=== PATIENT | male | born 1955 | race African-American/Black ===

== ENCOUNTER 2018-09-15 11:53 | Inpatient (IN) | payer OTHER ==
--- NOTE | 2018-09-15 13:14 | RAD ---
CHEST ONE VIEW: HISTORY: Dyspnea. Shortness of breath. FINDINGS: There is a very extensive left-sided pleural effusion/pleural fluid collection. There are some compr essive changes of the left mid and lower lobes. No evidence of acute process in the right lung. The heart size is difficult to assess because of the large pleural fluid collection. IMPRESSION: Very large left-sided pleural fluid collection with minimal shift of the midline to the right and com pressive changes of the underlying left lung. No old studies. POS: [facility]
[2018-09-15 13:17] LABS: Hemoglobin 9.5 g/dL (14.0-18.0); Mean Corpuscular Volume 90.3 fL (78.0-98.0); Mean Platelet Volume 9.1 fL (7.4-10.4); Platelet Count 211 thou/uL (130-400); RBC Distribution Width 16.1 % (11.5-14.5); Red Blood Cell (RBC) Count 3.51 mill/uL (4.70-6.10)
[2018-09-15] MEDS ORDERED: ISOVUE-370 76%-LOCM 1 ML ONE (13:33)
[2018-09-15 13:34] LABS: ALT (SGPT) 11 U/L (8-55); AST (SGOT) 52 U/L (5-34); Albumin 2.2 g/dL (3.4-4.8); Alkaline Phosphatase 60 U/L (40-150); Anion Gap 19 mmol/L (10-20); BUN (Urea Nitrogen) 33 mg/dL (8.4-25.7); Bilirubin, Total 1.4 mg/dL (0.2-1.2); Calc. Creatinine Clearance 0 mL/min (70-130); Carbon Dioxide 20 mmol/L (23-31); Chloride 97 mmol/L (98-107); Estimated GFR-MDRD Greater than 90; Globulin 6.1 g/dL (2.4-3.5); Glucose 105 mg/dL (80-115); Potassium 3.8 mmol/L (3.5-5.1); Protein, Total 8.3 g/dL (5.8-8.1); Sodium 132 mmol/L (136-145)
[2018-09-15 13:44] LABS: Band 45 % (5-11); Hypochromia SLIGHT = 6-15 cells (100X) (0-5/hpf); Lymphocytes 6 % (21-51); MDiff Complete? YES; Monocytes 1 % (0-10); Neutrophil 48 % (42-75); Platelet Morphology Comment Appears Adequate; Polychromasia MODERATE = 3-4 cells (100X) (0-2/hpf); Reflex for Review?? YES; Target Cells SLIGHT = 2-5 cells (100X) (0-1/hpf); Vacuoles SLIGHT; White Blood Cell (WBC) Count 5.7 thou/uL (4.8-10.8)
--- NOTE | 2018-09-15 15:19 | CT ---
CT ANGIO CHEST PERFORMED WITH IV CONTRAST ENHANCEMENT WITH 3D RECONSTRUCTIONS: Date: 09/15/18 HISTORY: Shortness of breath. Productive thick yellow cough. FINDINGS: There is a massive left-sided pleural effusion which has some loculated component, essentially comple tely collapses the left upper lobe. The left upper lobe is partially expanded. There are worrisome fe atures of some pleural based mass-like area seen along the upper portion of this effusion which is fe lt to represent a pleural based ill-defined mass. On the right side, there is interstitial nodular pa ttern which is very suspicious for lymphangitic spread of tumor. There is a spiculated mass-like area in the right upper lobe that measures about 3.5 cm in length. There are some other nodular parenchym al densities also seen, one within the right upper lobe measuring 12.0 mm, and some smaller areas of ill-defined nodularity. There are pathologic appearing mediastinal lymph nodes. Enlarged nodes at the great vessel region blair sure up to 12.0 mm in size. Similar size pretracheal nodes are seen. There is also some right hilar l ymphadenopathy. There are subcarinal nodes. Some of these nodes are somewhat densely calcified, but t he majority of these are noncalcified. Calcified nodes could be an indication of old granulomatous di sease, and another possibility is that it indicates some type of mucinous producing tumor. The liver parenchyma shows no focal abnormalities on this angiographic phase examination. There is so ft tissue mass in the region of the left adrenal gland. I believe that at least part of this is relat ed to the adrenal gland, but could represent adjacent lymph nodes. There are also some enlarged nodes in the gastrohepatic region and what appear to be some nodes in the periportal region. There are als o abnormally enlarged pericardial nodes measuring up to 11.0 mm. Small pericardial effusion is seen. There is no CT evidence for pulmonary embolus. IMPRESSION: 1. Massive left effusion which is partially loculated. Complete collapse of the left lower lobe. Par tial atelectatic changes of the left upper lobe and what is probably some type of pleural based mass in the left upper lobe. There is also a spiculated mass area within the right upper lobe and other il l-defined areas of nodularity. Some of these changes may represent pneumonitis type change, but I wou ld suspect neoplasm. There are also features that are very suspicious for lymphangitic spread of tumo r within the right lung. 2. Pathologic appearing adenopathy within the mediastinum, pericardium, and also abnormal nodes in t he gastrohepatic and periportal region, and left adrenal mass versus some conglomeration of nodes in this region. 3. No CT evidence for pulmonary embolus. These findings were telephoned to Dr. Palacio. CODE CR. POS: [facility]
[2018-09-15] MEDS ORDERED: Acetaminophen 325 MG TAB PO PRN (16:36)
[2018-09-15] MEDS ORDERED: Ondansetron ODT 4 MG TAB PO PRN (16:36)
--- NOTE | 2018-09-15 16:58 | PDOC.FPRHP ---
- History of Present Illness Chief Complaint: hard to breath History of Present Illness: 63M presents from senior care for shortness of breath of approximately one month. It has worsen since starting and is constant. Associated with productive yellow sputum, cough, night sweat. He has not tried anything to improve it. It is worst with exertion but not with laying flat. He never had this issue before. He specifically denies fever, chills, chest pain, orthopnea, dysuria, LE swelling. ED Course: In ED, he had CXR concerning for effusion of his left lung. D-dimer was elevated. He had a CTA which ruled out PE, but found left pleural effusion and nodules/masses concerning for malignancy. - Allergies/Adverse Reactions Allergies Allergy/AdvReac Type Severity Reaction Status Date / Time No Known Allergies Allergy Unverified 09/15/18 16:55 - Home Medications Medication Instructions Recorded Confirmed Type Aspirin [Aspirin EC] DAILY 09/15/18 History Ibuprofen 400 mg PO 09/15/18 History Lisinopril 09/15/18 History Pravastatin Sodium [Pravachol] 10 mg 09/15/18 History - History PMHx: HTN, HLD, Hx of hep c (unknown of cured) PSHx: Denies FHx: HTN in mother Social: At least 20+ tobacco pack year history. "1 bottle of alcohol a month" starting from age 18. Denies drug use. - Review of Systems General: reports: night sweats, fatigue. denies: fever/chills Eyes: denies: vision changes ENT: denies: nasal congestion, rhinorrhea Respiratory: reports: cough, shortness of breath, exercise intolerance. denies : congestion Cardiovascular: denies: chest pain, palpitation, paroxysmal nocturnal dyspnea, orthopnea Gastrointestinal: denies: nausea, vomiting, diarrhea, constipation, abdominal pain Genitourinary: denies: incontinence, dysuria Skin: denies: rashes, itching Musculoskeletal: denies: pain, tenderness Neurological: denies: syncope, weakness Psychological: denies: anxiety, depression - Vital signs BP: [] HR: [] RR: [] Tmax: [] Pox: []% on [] Wt: [] - Physical Exam Constitutional: NAD, awake, alert and oriented -Constitutional: Thin HEENT: normocephalic and atraumatic, PERRLA, EOMI, conjunctiva clear, grossly normal vision, grossly normal hearing, normal nasal mucosa, MMM, oropharynx clear -HEENT: Missing some teeth Neck: supple, trachea midline Chest: no-tender to palpation, no lesions Heart: RRR, normal S1/S2, pulses present, no edema Lungs: CTAB, no respiratory distress, no rales/rhonchi (Dimish left sided lung sound), no wheezing, no retractions Abdomen: soft, non-tender, bowel sounds present, no masses/distention Musculoskeletal: normal structure, normal tone, ROM grossly normal Neurological: no focal deficit, normal sensation Skin: no rash/lesions, good turgor Heme/Lymphatic: no unusual bruising or bleeding, no petechia -Psychiatric: At times, somewhat somenolent and had to be questioned multiple time. FMR H&P: Results - Labs Result Diagrams: 09/15/18 12:40 09/15/18 12:40 Lab results: WBC 5.7 thou/uL (4.8-10.8) 09/15/18 12:40 Hgb 9.5 g/dL (14.0-18.0) L 09/15/18 12:40 Hct 31.7 % (42.0-52.0) L 09/15/18 12:40 MCV 90.3 fL (78.0-98.0) 09/15/18 12:40 Plt Count 211 thou/uL (130-400) 09/15/18 12:40 Band Neuts % (Manual) 45 % (5-11) H 09/15/18 12:40 Sodium 132 mmol/L (136-145) L 09/15/18 12:40 Potassium 3.8 mmol/L (3.5-5.1) 09/15/18 12:40 Chloride 97 mmol/L (98-107) L 09/15/18 12:40 Carbon Dioxide 20 mmol/L (23-31) L 09/15/18 12:40 BUN 33 mg/dL (8.4-25.7) H 09/15/18 12:40 Creatinine 1.00 mg/dL (0.7-1.3) 09/15/18 12:40 Glucose 105 mg/dL (80-115) 09/15/18 12:40 Calcium 8.0 mg/dL (7.8-10.44) 09/15/18 12:40 Total Bilirubin 1.4 mg/dL (0.2-1.2) H 09/15/18 12:40 AST 52 U/L (5-34) H 09/15/18 12:40 ALT 11 U/L (8-55) 09/15/18 12:40 Alkaline Phosphatase 60 U/L (40-150) 09/15/18 12:40 B-Natriuretic Peptide 70.5 pg/mL (0-100) 09/15/18 12:40 Serum Total Protein 8.3 g/dL (5.8-8.1) H 09/15/18 12:40 Albumin 2.2 g/dL (3.4-4.8) L 09/15/18 12:40 Additional comment: 110/86 Resp 18 O2 96 RA 123 Pulse Temp 98.4F FMR H&P: A/P - Problem List (1) Acute respiratory failure with hypoxia and hypercapnia Current Visit: Yes Status: Acute Priority: High Code(s): J96.01 - ACUTE RESPIRATORY FAILURE WITH HYPOXIA; J96.02 - ACUTE RESPIRATORY FAILURE WITH HYPERCAPNIA Assessment and Plan: Patient comes in with shortness of breath, CMP suggesting hypercapnia and after initial evaluation, being placed on nasal canula. Plan for patient is to start with abx. Suspect post-obstructive pneumonia. Will start with vanc and levaquin to cover for MRSA and legionella Further study with legionella/strep antigen. Ordered blood culture to be taken prior to abx. Consult pulmonology as CT concerning for malignancy in lung and effusion (2) HLD (hyperlipidemia) Current Visit: Yes Status: Acute Code(s): E78.5 - HYPERLIPIDEMIA, UNSPECIFIED Assessment and Plan: Chronic issue Continue on home med (3) HTN (hypertension) Current Visit: Yes Status: Acute Code(s): I10 - ESSENTIAL (PRIMARY) HYPERTENSION Assessment and Plan: Chronic issue, stable Will hold on medication at this time to ensure patient BP is stable (4) History of hepatitis C Current Visit: Yes Status: Acute Code(s): Z86.19 - PERSONAL HISTORY OF OTHER INFECTIOUS AND PARASITIC DISEASES Assessment and Plan: Will request record to verify. - Plan Tele, inpatient. FMR H&P: Upper Level - Plan Date/Time: 09/15/18 [id number] I, [], have evaluated this patient and agree with findings/plan as outlined by market research intern resident. Pertinent changes/additions are listed here. Addendum - Attending - Attending Attestation Date/Time: 09/15/181918 I personally evaluated the patient and discussed the management with Dr. Bolden I agree with the History, Examination, Assessment and Plan documented above with any addition or exceptions noted below.63 yo inmate with progressive SOB last month he denies any cough fever or chills . Hx smoking since young age.Patient found with Large left sided pleural effusion suggestive of malignancy. Patient with hyponatremia most likely related to pulmonary pathology currently in NAD with supplemental oxygen. Appreciate Pulmonary recommendation start neb and cover with empirical antibiotic for post obstructive pneumonia. Hold DVT prophylaxis until determination further surgical intervention.
[2018-09-15] MEDS ORDERED: Vancomycin HCl 1 GM in Sodium Chloride 0.9% 250 ML 250 ML IVPB SCH (17:00)
[2018-09-15] MEDS ORDERED: Vancomycin HCl 1 GM in Premix Bag 1 BAG IVPB SCH (17:00)
[2018-09-15 17:02] LABS: Actual Bicarbonate (HCO3a) 23.9 mEq/L (22-28); Analyzer IN Cardio ER; Base Excess (BEa) 1.8 mEq/L (-2.0 to +3.0); CO2 Tension 28.5 mmHg (35.0-45.0); Calcium, Ionized 1.07 mmol/L (1.12-1.30); Carboxyhemoglobin (COHb) 0.2 gm% (0.0-3.0); Hemoglobin (Hb) 9.3 g/dL (14.0-18.0); Potassium - ABG Lab 3.55 mmol/L (3.70-5.30); pH, Arterial 7.54 (7.35-7.45)
[2018-09-15 17:06] LABS: O2 Tension (PaO2) 59.3 mmHg (> 80.0); Puncture Site LRA
[2018-09-15 17:07] LABS: ALV-art Gradient 104.715 (0-20)
--- NOTE | 2018-09-15 18:55 | CON ---
DATE OF CONSULTATION: HISTORY OF PRESENT ILLNESS: Mr. Babb is a 63-year-old prisoner, who presented with shortness of breath for over a month. He has also lost approximately 60 pounds over an unknown period of time. He is cachectic appearing. He has no fever or chills that he complains of. He has no previous history of tuberculosis. He has not had any productive cough. He has had a chest x-ray and CT scan of the chest performed, which shows a large loculated left pleural effusion. He also has lymph nodes present in the level V and level VII areas. He has a right upper lobe lung mass that is spiculated approximately 3 cm in diameter. PAST MEDICAL HISTORY: 1. Hypertension. 2. Dyslipidemia. 3. History of hepatitis C. PAST SURGICAL HISTORY: None. CURRENT MEDICATIONS: 1. Aspirin 325 mg daily. 2. Lisinopril 10 mg daily. 3. Pravastatin 10 mg daily. ALLERGIES: NONE. SOCIAL HISTORY: He continuously smokes. He is incarcerated REVIEW OF SYSTEMS: Ten-point review of systems is performed and is negative except as above. PHYSICAL EXAMINATION: GENERAL: This is a cachectic-appearing gentleman, resting comfortably on the Stroke Unit. VITAL SIGNS: Temperature is 98.8, pulse is 70 and regular, and blood pressure is 170/72. HEENT: Sclerae are nonicteric. Pupils are equal and round bilaterally. NECK: Supple. He has an easily palpable rock-hard left supraclavicular lymph node. CHEST: Has diminished breath sounds over the left chest. He has nonproductive cough. HEART: Rhythm is regular. There are no murmurs. ABDOMEN: Soft and nontender. EXTREMITIES: There is no edema. ASSESSMENT AND PLAN: This is concerning for malignant process. I have discussed the thoracoscopy to drain his pleural effusion and biopsy the pleura and any other abnormalities we see in his chest. We would also biopsy his left supraclavicular lymph node. He is in agreement with my plans for tomorrow. Job ID: [id number] [facility]
[2018-09-15] MEDS: Vancomycin HCl 1 GM in Premix Bag 1 BAG IVPB SCH (22:08)
--- NOTE | 2018-09-15 22:45 | PDOC.EVN ---
Event Note - Event Note Event Note: Notified by nurses that patient is fevering to 101.5, HR 123, RR 22-24, O2 93 on 3L, blood pressure was low at 97/49 but is now stable at 119/68. Will initiate sepsis work up with 30 mg/kg bolus, procal, and trend lactic acid. Blood cultures have already been drawn.
[2018-09-15] MEDS ORDERED: Sodium Chloride 0.9% 1,000 ML IV SCH (23:00)
--- NOTE | 2018-09-16 00:48 | CON ---
DATE OF CONSULTATION: 09/15/2018 HISTORY OF PRESENT ILLNESS: Mr. Babb is a 63-year-old [facility] inmate who is reporting a 60-pound weight loss and progressive shortness of breath for at least a month. His weight loss has come on longer than that. I was consulted for pleural effusion. I reviewed his CT and examined him. He had a chest x-ray and CT angiogram done in the year and I have reviewed both. PAST MEDICAL HISTORY: 1. He says he has had heart problems in the past, but he is not specific. Says he has never had a catheterization or heart attack. 2. He has a history of hepatitis. 3. He has a history of hypertension. FAMILY HISTORY: Positive for hypertension. PAST SURGICAL HISTORY: Negative. SOCIAL HISTORY: He has been a smoker and was a regular drinker before he was incarcerated. REVIEW OF SYSTEMS: Ten-point review of systems completed, is remarkable for shortness of breath and weight loss, otherwise negative. PHYSICAL EXAMINATION: GENERAL: He denies fever, chills, or sweats. VITAL SIGNS: Temp is 101.8, heart rate is 137, respiratory rate is 20, blood pressure 136/80 when he was admitted to the floor. HEENT: Pupils are equal. Sclerae are anicteric. I do not palpate any cervical lymphadenopathy. NECK: His trachea is in midline. There was a left supraclavicular node that was noted by Dr. Brewer. LUNGS: Remarkable for absent breath sounds, 2/[address] up on the left. HEART: Regular rhythm. S1 and S2 are normal. ABDOMEN: Soft and nontender. No masses readily palpable. EXTREMITIES: Without clubbing, cyanosis or edema. LABORATORY DATA: White count 5.7, hemoglobin 9.5, MCV is 90, RDW is 16, platelets 211. He has 45% bands on his peripheral smear. Sodium 132, potassium 3.8, chloride 97, bicarb 20, BUN 33, creatinine 1.0, bilirubin is 1.4. AST is 52, ALT is 11, protein is 8.3, globulin 6.1. Chest CT, suggestive of a loculated effusion that has been fairly massive on the left with multiple nodes. There is a lateral chest wall lung density that is oblong and spiculated. He has an increase in interstitial marking. It could be consistent with lymphangitic spread of tumor. He also has a right upper lobe mass. He has mediastinal and abdominal nodes. 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 Thoracoscopy may reveal a diagnosis and if not a supraclavicular node biopsy may be helpful. His elevated serum protein and his elevated globulin could be paraneoplastic, it also could be associated with another malignant process such as multiple myeloma, this seems unlikely. I doubt he has Waldenstrom's. He does have a white count with a left shift, so antibiotics are reasonable for now, but I doubt this is an infectious process. I consulted CT surgery and they had been gracious enough to see the patient and he is on a schedule for thoracoscopy, chest tube placement, pleural biopsies and possible supraclavicular node biopsy tomorrow. This is a 70 minute consult, with greater than 50% of time spent on unit coordinating care. Job ID: [id number] [facility]
[2018-09-16 00:59] LABS: Legionella Urinary Ag Negative (Negative)
[2018-09-16 01:19] LABS: Strep pneumo Urine Ag NEGATIVE (NEGATIVE)
[2018-09-16 03:14] LABS: Troponin I Less than 0.010 ng/mL (< 0.028)
[2018-09-16 03:16] LABS: Lactic Acid 2.4 mmol/L (0.5-2.2)
[2018-09-16 03:17] LABS: Band 20 % (5-11); Hemoglobin 7.5 g/dL (14.0-18.0); Hypochromia SLIGHT = 6-15 cells (100X) (0-5/hpf); Lymphocytes 4 % (21-51); MDiff Complete? YES; Mean Corpuscular HGB CONC 30.1 g/dL (32.0-36.0); Mean Corpuscular Hemoglobin 27.1 pg (27.0-31.0); Mean Corpuscular Volume 89.9 fL (78.0-98.0); Mean Platelet Volume 9.7 fL (7.4-10.4); Monocytes 2 % (0-10); Neutrophil 74 % (42-75); Platelet Count 121 thou/uL (130-400); Platelet Morphology Comment Appears Decreased; Polychromasia SLIGHT = 2-3 cells (100X) (0-2/hpf); RBC Distribution Width 15.9 % (11.5-14.5); Red Blood Cell (RBC) Count 2.78 mill/uL (4.70-6.10); Target Cells SLIGHT = 2-5 cells (100X) (0-1/hpf); White Blood Cell (WBC) Count 4.3 thou/uL (4.8-10.8)
[2018-09-16 03:23] LABS: AST (SGOT) 59 U/L (5-34); Albumin 1.7 g/dL (3.4-4.8); Alkaline Phosphatase 48 U/L (40-150); Anion Gap 16 mmol/L (10-20); BUN (Urea Nitrogen) 27 mg/dL (8.4-25.7); Bilirubin, Total 1.3 mg/dL (0.2-1.2); Calc. Creatinine Clearance 85 mL/min (70-130); Calcium 7.3 mg/dL (7.8-10.44); Carbon Dioxide 20 mmol/L (23-31); Chloride 101 mmol/L (98-107); Estimated GFR-MDRD Greater than 90; Globulin 5.2 g/dL (2.4-3.5); Glucose 85 mg/dL (80-115); Potassium 3.7 mmol/L (3.5-5.1); Protein, Total 6.9 g/dL (5.8-8.1); Sodium 133 mmol/L (136-145)
[2018-09-16] MEDS: Sodium Chloride 0.9% 1,000 ML IV SCH ×5 (03:41→20:40)
[2018-09-16 03:46] LABS: ALT (SGPT) 12 U/L (8-55)
[2018-09-16] MEDS ORDERED: Sodium Chloride 0.9% 1,000 ML IV SCH ×2 (05:45→15:00)
[2018-09-16] MEDS ORDERED: Bupivacaine HCl 0.5%/Epinephrine 1:200,000/PF 30 ml Vial ONE (06:28)
[2018-09-16] MEDS ORDERED: Fentanyl 250 MCG/5 ML VIAL ONE (07:00)
--- NOTE | 2018-09-16 08:32 | PDOC.FM ---
- Subjective Subjective: Pt getting ready to go down for surgery when we saw him. Pt had no acute concerns or complaints. Pt feeling better from earlier in the night. Pt had fevers and elevated heart rate overnight. Sepsis protocol initiated. - Objective MAR Reviewed: Yes Vital Signs & Weight: Vital Signs (12 hours) Temp Pulse Resp BP Pulse Ox 09/16/18 05:00 102.5 F H 133 H 26 H 153/82 H 94 L 09/16/18 02:50 100.9 F H 141 H 28 H 130/66 93 L 09/16/18 02:10 131 H 18 95 09/16/18 00:00 101.0 F H 123 H 22 H 115/71 95 09/15/18 21:00 119/68 Weight Weight 72 kg Result Diagrams: 09/16/18 17:38 09/16/18 02:48 EKG Reviewed by me: Yes Radiology Reviewed by me: Yes Radiology: Chest CT: Massive Left effusion and collapse of the left lower lobe. Pathologic appearing adenopathy w/n the mediastinum, pericardium, and also abnormal nodes in the gastrohepatic and periportal region, and left adreanl mass vs some conglomeration of nodes in the region. No PE. Phys Exam - Physical Examination Constitutional: NAD HEENT: PERRLA, moist MMs Neck: no nodes, supple, full ROM Decreased breath sounds on left side. Rales and crackles noted Cardiovascular: RRR, no significant murmur Gastrointestinal: soft, no distention Musculoskeletal: pulses present Neurological: non-focal, moves all 4 limbs Psychiatric: normal affect Skin: no rash, normal turgor Dx/Plan (1) Acute respiratory failure with hypoxia and hypercapnia Code(s): J96.01 - ACUTE RESPIRATORY FAILURE WITH HYPOXIA; J96.02 - ACUTE RESPIRATORY FAILURE WITH HYPERCAPNIA Status: Acute (2) Pleural effusion Code(s): J90 - PLEURAL EFFUSION, NOT ELSEWHERE CLASSIFIED Status: Acute (3) Neoplasm /cancer Code(s): C80.1 - MALIGNANT (PRIMARY) NEOPLASM, UNSPECIFIED Status: Acute (4) Pneumonia Code(s): J18.9 - PNEUMONIA, UNSPECIFIED ORGANISM Status: Acute (5) HLD (hyperlipidemia) Code(s): E78.5 - HYPERLIPIDEMIA, UNSPECIFIED Status: Acute (6) HTN (hypertension) Code(s): I10 - ESSENTIAL (PRIMARY) HYPERTENSION Status: Acute (7) History of hepatitis C Code(s): Z86.19 - PERSONAL HISTORY OF OTHER INFECTIOUS AND PARASITIC DISEASES Status: Acute - Plan Plan: Acute respiratory failure with hypoxia and hypercapnia 2/2 to mass and likely obstructive pneumonia Patient comes in with shortness of breath, CMP suggesting hypercapnia and after initial evaluation, being placed on nasal canula. Suspect post-obstructive pneumonia. Pt started spiking fever with elevated HR overnight. Concern for sepsis. Will continue with vanc and levaquin to cover for MRSA and legionella. Acetominophen for fevers. Will continue fluids once out of surgery. -CT Chest as read above. -Strep and Legionella Ag negative. -Blood cx pending. -Pulmonology- Dr. Luke consulted- follow recs -CT surgery- Dr. Brewer consulted- follow recs Plan for surgery and bx today. Will follow post op recs. Will await biopsy results. Anemia -Type and crossed -Hgb 7.5. -Will continue to monitor and transfuse as needed. HLD -Chronic issue -Continue on home med HTN -Chronic issue, stable -Will hold on medication at this time to ensure patient BP is stable History of hepatitis C -Will request record to verify. Addendum - Attending - Attending Attestation Date/Time: 09/16/182012 I personally evaluated the patient and discussed the management with Dr. Myers I agree with the History, Examination, Assessment and Plan documented above with any addition or exceptions noted below. Patient for thoracotomy and supraclavicular node biopsy today.
[2018-09-16] MEDS ORDERED: Enoxaparin Sodium 40 MG/0.4 ML SYRINGE SC SCH (09:00)
[2018-09-16 12:18] LABS: Actual Bicarbonate (HCO3a) 21.5 mEq/L (22-28); Base Excess (BEa) -6.2 mEq/L (-2.0 to +3.0); CO2 Tension 54.4 mmHg (35.0-45.0); Calcium, Ionized 0.98 mmol/L (1.12-1.30); Carboxyhemoglobin (COHb) 2.1 gm% (0.0-3.0); Hemoglobin (Hb) 8.6 g/dL (14.0-18.0); O2 Tension (PaO2) 72.1 mmHg (> 80.0)
[2018-09-16 12:21] LABS: pH, Arterial 7.21 (7.35-7.45)
[2018-09-16 12:22] LABS: Puncture Site LINE
--- NOTE | 2018-09-16 12:30 | OP ---
DATE OF PROCEDURE: 09/16/2018 PREOPERATIVE DIAGNOSES: 1. Left supraclavicular mass. 2. Left chronic pleural effusion with right lung mass. POSTOPERATIVE DIAGNOSES: 1. Left supraclavicular mass. 2. Left empyema. PROCEDURES PERFORMED: 1. Excision of left supraclavicular mass. 2. Left subclavian central line. 3. Left thoracoscopy/thoracotomy with total pulmonary decortication. ANESTHESIA: General endotracheal - Dr. Herman Steele. DRAINS: 32-Turkish chest tubes x2. SPECIMENS: 1. Left supraclavicular mass. 2. Pleural fluid and decortication specimen sent for culture and cytology. ESTIMATED BLOOD LOSS: Less than 100. FINDINGS: 1. A 3 cm hard supraclavicular mass. 2. 2500 mL of turbid foul-smelling fluid with a totally encased left upper and lower lobe. The parietal and visceral pleura were decorticated as much as I felt safe doing. There will still be some space, but with the drainage, hopefully, this will close. DESCRIPTION OF PROCEDURE: After consent was obtained, the patient was brought to the operating room and placed in supine position on the operating table. Appropriate central line was placed and general endotracheal anesthesia was induced. The left chest wall was prepped and draped in usual sterile fashion. A 7-Turkish triple-lumen central line was placed using modified Seldinger technique. This was secured with silk suture. The skin incision was made over the supraclavicular mass. Dissection down through the platysma was taken with cautery. External jugular vein was preserved. Phrenic nerve was noted and protected. The mass was carefully dissected free from the surrounding tissues including the subclavian vein. Once the mass was able to be removed from the incision, it was removed. Hemostasis was ensured. The wound was copiously irrigated. Wound was then closed in layers and Dermabond applied to skin. The patient was then placed in right lateral decubitus position. Joints were appropriately padded. SCDs were used. The left chest wall was prepped and draped in usual sterile fashion. Two port incisions were made and the suction inserted. About 2500 total mL of turbid foul-smelling fluid was evacuated. On insertion of the scope, there was a large amount of very thick parietal peel. I could not get this to pass through the port incision. Therefore, a working incision was made, which later was extended to a thoracotomy due to the volume of material that was removed. Both parietal and visceral pleura were decorticated. The peel was thick and very adherent to the lung. It was difficult to define actually where the lung ended, the pericardium and diaphragm began. Eventually we were able to get in the subpulmonary space and decorticate the diaphragm and the lung itself. 32-Turkish chest tubes were placed. The chest was copiously irrigated with 5 L of warm water. The lung was inflated and mostly filled the chest cavity. Ribs were reapproximated with #1 Vicryl. Wounds were irrigated and closed in layers and Dermabond was applied to the skin. The patient tolerated the procedure well, was awakened, extubated, and transferred to the intensive care unit in stable, but critical condition. Job ID: [id number]
[2018-09-16] MEDS ORDERED: Norepinephrine 8 MG/0.9% NS 250 ML ONE (12:43)
[2018-09-16] MEDS ORDERED: HYDROcodone/Acetaminophen 5/325 mg Tablet PO PRN ×2 (13:18)
[2018-09-16] MEDS ORDERED: Phenylephrine 10 MG/NS 250 ML 250 ML IVPB PRN (13:18)
[2018-09-16] MEDS ORDERED: Promethazine HCl 25 MG/ML VIAL IM PRN (13:18)
[2018-09-16] MEDS ORDERED: hydrALAZINE 20 MG/ML VIAL SLOW IVP PRN (13:18)
[2018-09-16] MEDS ORDERED: Morphine 4 MG/ML VIAL SLOW IVP PRN (13:18)
[2018-09-16] MEDS ORDERED: Morphine 2 MG/ML SYRINGE SLOW IVP PRN ×2 (13:18→23:30)
--- NOTE | 2018-09-16 13:18 | EKG ---
Test Reason : Blood Pressure : / mmHG Vent. Rate : 138 BPM Atrial Rate : 138 BPM P-R Int : 132 ms QRS Dur : 072 ms QT Int : 362 ms P-R-T Axes : 049 016 088 degrees QTc Int : 548 ms Poor data quality, interpretation may be adversely affected Sinus tachycardia with Fusion complexes T wave abnormality, consider inferior ischemia T wave abnormality, consider anterolateral ischemia Abnormal ECG When compared with ECG of 15-SEP-2018 12:12, (Unconfirmed) Fusion complexes are now Present Confirmed by CATALINO GRUBER, SRobert ([id number]) on 09/16/2018 1:17:45 PM Referred By: HARLEY Confirmed By:DR. Amairani BAE MD
[2018-09-16] MEDS: Vancomycin HCl 1 GM in Premix Bag 1 BAG IVPB SCH ×2 (13:25→20:39)
[2018-09-16] MEDS: Lisinopril 20 MG TAB PO SCH (13:26)
[2018-09-16 13:45] LABS: Actual Bicarbonate (HCO3a) 17.8 mEq/L (22-28); Base Excess (BEa) -6.6 mEq/L (-2.0 to +3.0); CO2 Tension 30.6 mmHg (35.0-45.0); Calcium, Ionized 0.95 mmol/L (1.12-1.30); Carboxyhemoglobin (COHb) 2.7 gm% (0.0-3.0); Hemoglobin (Hb) 7.5 g/dL (14.0-18.0); O2 Tension (PaO2) 74.4 mmHg (> 80.0); Potassium - ABG Lab 3.65 mmol/L (3.70-5.30); pH, Arterial 7.38 (7.35-7.45)
[2018-09-16 13:47] LABS: Puncture Site LINE
--- NOTE | 2018-09-16 15:20 | RAD ---
CHEST ONE VIEW: History: Status post thoracotomy. Comparison: 09-15-18 FINDINGS: Endotracheal tube is in satisfactory position. Left subclavian line has been placed. Catheter tip ove rlies the superior vena cava. Two left sided chest tubes are now in place. The left effusion has sign ificantly reduced in size. The left lung is incompletely re-expanded. Surgical clips are seen in the left supraclavicular region. The mass like areas within the right lung in the upper lobe region is un changed. IMPRESSION: 1. Post-operative changes with two left chest tubes now in place with significant reduction of the le ft pleural effusion. The left lung is incompletely re-expanded. Pleural based mass-like area in the l eft upper lobe and a mass in the right upper lobe are also again demonstrated. Interstitial lung nolasco ges which are suggestive of lymphangitic spread of tumor are also unchanged. 2. Endotracheal tube in satisfactory position. 3. Left subclavian line catheter tip overlying the proximal superior vena cava. POS: [facility]
[2018-09-16] MEDS ORDERED: Norepinephrine 8 MG/250 ML IVPB SCH (16:30)
[2018-09-16] MEDS ORDERED: Lidocaine 1% PF 5 ML VIAL ONE (17:10)
[2018-09-16] MEDS ORDERED: Glycopyrrolate 0.2 MG/ML 5 ML SYRINGE ONE (17:10)
[2018-09-16] MEDS ORDERED: Rocuronium Bromide 10 MG/ML (10ML VIAL) ONE (17:10)
[2018-09-16] MEDS ORDERED: Ondansetron PF 4 MG/2 ML Vial ONE (17:10)
[2018-09-16] MEDS ORDERED: PROPOFOL 200 MG/20 ML VIAL ONE (17:10)
[2018-09-16 18:14] LABS: Anisocytosis SLIGHT = 6-15 cells (100X) (0-5/hpf); Band 41 % (5-11); Hemoglobin 9.3 g/dL (14.0-18.0); Hypochromia SLIGHT = 6-15 cells (100X) (0-5/hpf); Lymphocytes 8 % (21-51); MDiff Complete? YES; Mean Corpuscular HGB CONC 30.5 g/dL (32.0-36.0); Mean Corpuscular Volume 91.8 fL (78.0-98.0); Metamyelocyte 2 % (0-0); Monocytes 3 % (0-10); Neutrophil 46 % (42-75); Platelet Count 140 thou/uL (130-400); Platelet Morphology Comment Appears Adequate; Red Blood Cell (RBC) Count 3.31 mill/uL (4.70-6.10); Toxic Granulation SLIGHT
[2018-09-16] MEDS: Pravastatin Sodium 20 MG TAB PO SCH (20:39)
--- NOTE | 2018-09-16 22:35 | PRG ---
DATE OF SERVICE: 09/16/2018 SUBJECTIVE: Mr. Babb went to the OR today. Surprisingly, he had pus in his left chest. Approximately 2-1/2 L per my discussion with Dr. Brewer was removed. Surprisingly, the Gram-stain does not show any organisms, it did show abundant white cells. The large hard supraclavicular node was removed. He became hypotensive in the OR and after the OR, he has received 2 L of saline bolus after arrived in the ICU. He was on a Levophed drip ordered by me on arrival and this was slowly being tapered when I last checked on him this afternoon. OBJECTIVE: LUNGS: Clear anteriorly. HEART: Regular rhythm. ABDOMEN: Soft. He is sedated for ventilation. LABORATORY DATA: White count is 5, hemoglobin 9.3, platelets 140. Sodium 133, potassium 3.7, chloride 101, bicarb 20, BUN 27, creatinine 0.88. Albumin was 1.7. IMPRESSION: 1. Metastatic lung malignancy most likely. 2. ? empyema. We will await cultures. I doubt this is a purulent exudate related to necrotic tumor, but I guess it is a possibility. I doubt he has a chylothorax, well I guess it is still in the differential. I will continue to follow the other physicians. He is currently not weaning. Postprocedure blood gas showed metabolic acidosis. His ventilator was adjusted to compensate for this and his followup blood gas showed pH went from 7.21 to 7.38. Critical care time 35 minutes. Job ID: [id number]
[2018-09-16] MEDS ORDERED: Propofol 1,000 MG/100 ML VIAL IV PRN (23:30)
[2018-09-16] MEDS ORDERED: Lorazepam 2 MG/ML VIAL SLOW IVP PRN (23:30)
[2018-09-16] MEDS ORDERED: DISCONTINUE PREVIOUS NARCOTIC PAIN MEDICATIONS AND BENZODIAZEPINES FS SCH (23:30)
[2018-09-16] MEDS ORDERED: Propofol BOLUS 1,000 MG/100 ML VIAL IV PRN (23:30)
[2018-09-16] MEDS ORDERED: Fentanyl CADD 250 ML IVPB SCH (23:30)
[2018-09-16] MEDS ORDERED: Fentanyl BOLUS 250 ML IVPB PRN (23:30)
[2018-09-16] MEDS: fentaNYL Citrate/PF 2,000 MCG in Sodium Chloride 0.9% 60 ML IV SCH (23:57)
[2018-09-17 03:55] LABS: #Lymphocytes 0.4 thou/uL (1.20-3.40); #Monocytes 0.2 thou/uL (0.11-0.59); %Eosinophils 0.1 % (0.0-10.0); %Lymphocytes 8.7 % (21.0-51.0); %Monocytes 3.2 % (0.0-10.0); Hemoglobin 9.5 g/dL (14.0-18.0); Mean Corpuscular HGB CONC 31.1 g/dL (32.0-36.0); Mean Corpuscular Hemoglobin 28.4 pg (27.0-31.0); Mean Corpuscular Volume 91.5 fL (78.0-98.0); Platelet Count 147 thou/uL (130-400); RBC Distribution Width 15.2 % (11.5-14.5); Red Blood Cell (RBC) Count 3.35 mill/uL (4.70-6.10); White Blood Cell (WBC) Count 4.6 thou/uL (4.8-10.8)
[2018-09-17 04:16] LABS: ALT (SGPT) 10 U/L (8-55); AST (SGOT) 42 U/L (5-34); Albumin 1.4 g/dL (3.4-4.8); Alkaline Phosphatase 41 U/L (40-150); Anion Gap 12 mmol/L (10-20); BUN (Urea Nitrogen) 19 mg/dL (8.4-25.7); Bilirubin, Total 1.3 mg/dL (0.2-1.2); Calc. Creatinine Clearance 112 mL/min (70-130); Calcium 6.7 mg/dL (7.8-10.44); Carbon Dioxide 17 mmol/L (23-31); Chloride 111 mmol/L (98-107); Estimated GFR-MDRD Greater than 90; Globulin 4.1 g/dL (2.4-3.5); Glucose 121 mg/dL (80-115); Potassium 3.6 mmol/L (3.5-5.1); Protein, Total 5.5 g/dL (5.8-8.1); Sodium 136 mmol/L (136-145)
[2018-09-17] MEDS: Sodium Chloride 0.9% 1,000 ML IV SCH ×3 (05:52→18:33)
--- NOTE | 2018-09-17 07:08 | PDOC.FM ---
- Subjective Subjective: Pt intubated at this time. Pt awakens to command. Pt denies any pain at this time. Pt reports being comfortable. Nurse denies any acute events overnight. Pt on rate of 5 of levophed and maintaining pressures well. Reports 750 ml of output from chest tube. - Objective MAR Reviewed: Yes Vital Signs & Weight: Vital Signs (12 hours) Temp Pulse BP Pulse Ox 09/17/18 03:00 98.4 F 09/17/18 02:37 97 119/72 09/17/18 00:20 89 121/78 09/17/18 00:00 98.4 F 09/16/18 22:36 88 118/76 09/16/18 20:00 98.4 F 98 Weight Weight 78.6 kg Most Recent Monitor Data Heart Rate from ECG 101 NIBP 109/64 NIBP BP-Mean 79 Respiration from ECG 24 SpO2 97 I&O: 09/16/18 09/17/18 09/18/18 06:59 06:59 06:59 Intake Total 6377.1 Output Total 3095 Balance 3282.1 Result Diagrams: 09/17/18 03:30 09/17/18 03:30 EKG Reviewed by me: Yes (Tachy) Radiology Reviewed by me: Yes (Repeat Post Op CXR official read pending. Appears to be better at this time) Phys Exam - Physical Examination Constitutional: NAD HEENT: PERRLA Neck: supple Decreased breath sounds on the left. Crackles and rales noted bilaterally Tachy, regular rhythm. No significant murmur Gastrointestinal: soft, no distention, positive bowel sounds Musculoskeletal: no edema, pulses present Neurological: non-focal Able to respond to yes-no quesions Deviation from normal: Intubated at this time. Skin: no rash, normal turgor, cap refill <2 seconds Dx/Plan (1) Acute respiratory failure with hypoxia and hypercapnia Code(s): J96.01 - ACUTE RESPIRATORY FAILURE WITH HYPOXIA; J96.02 - ACUTE RESPIRATORY FAILURE WITH HYPERCAPNIA Status: Acute (2) Pleural effusion Code(s): J90 - PLEURAL EFFUSION, NOT ELSEWHERE CLASSIFIED Status: Acute (3) Neoplasm /cancer Code(s): C80.1 - MALIGNANT (PRIMARY) NEOPLASM, UNSPECIFIED Status: Acute (4) Pneumonia Code(s): J18.9 - PNEUMONIA, UNSPECIFIED ORGANISM Status: Acute (5) HLD (hyperlipidemia) Code(s): E78.5 - HYPERLIPIDEMIA, UNSPECIFIED Status: Acute (6) HTN (hypertension) Code(s): I10 - ESSENTIAL (PRIMARY) HYPERTENSION Status: Acute (7) History of hepatitis C Code(s): Z86.19 - PERSONAL HISTORY OF OTHER INFECTIOUS AND PARASITIC DISEASES Status: Acute - Plan Plan: Acute respiratory failure with hypoxia and hypercapnia 2/2 to mass and likely obstructive pneumonia Patient came in with shortness of breath -Post Op Day 1 from surgery w/ excision L. supraclavicular mass, L. thoracoscopy/Thoracotomy w/ total pulm decortication. 2.5 L of what appeared to be pus removed. -On pressors at this time. Will continue to wean off levophed. -Intubated. -Will await Path and cytology. Possible epymea. Will continue with vanc and levaquin to cover for MRSA and legionella. Acetominophen for fevers. -Strep and Legionella Ag negative. -Blood cx pending. -Pulmonology- Dr. Luke consulted- follow recs. Suspect metastatic cancer. -CT surgery- Dr. Brewer consulted- follow recs. Anemia -Type and crossed -Hgb 9.5 today. Trended up. -Transfused 2 untis yesterday. HLD -Chronic issue -Continue on home med HTN -Chronic issue, stable -Hold medication at this time.2 History of hepatitis C -Will request record to verify. Addendum - Attending - Attending Attestation Date/Time: 09/17/18 1554 I personally evaluated the patient and discussed the management with Dr. Myers I agree with the History, Examination, Assessment and Plan documented above with any addition or exceptions noted below. Patient POD #1 BP and pulse stable on low dose pressor alert following commands comfortable with fentanyl good urine output , pleural vac with blood tinged drainage appr 750 ml outpt. Continue ventilatory support per critical care .
[2018-09-17 07:45] LABS: Actual Bicarbonate (HCO3a) 20.4 mEq/L (22-28); Base Excess (BEa) -2.6 mEq/L (-2.0 to +3.0); Calcium, Ionized 1.04 mmol/L (1.12-1.30); Carboxyhemoglobin (COHb) 1.4 gm% (0.0-3.0); Hemoglobin (Hb) 9.3 g/dL (14.0-18.0); O2 Tension (PaO2) 115.5 mmHg (> 80.0); Potassium - ABG Lab 3.62 mmol/L (3.70-5.30); pH, Arterial 7.47 (7.35-7.45)
[2018-09-17 07:46] LABS: Puncture Site LINE
[2018-09-17 09:07] LABS: Fluid, Cholesterol 10 mg/dL (Not Available); Fluid, Triglycerides 19 mg/dL (Not Available)
--- NOTE | 2018-09-17 09:08 | RAD ---
CHEST ONE VIEW: HISTORY: Dyspnea. Heart surgery. Followup. COMPARISON: 09/16/2018 FINDINGS: The cardiac silhouette is magnified and partially obscured by significant atelectasis in the lingula. Pulmonary vascular congestion and widespread reticulonodular interstitial prominence is again demon strated and is now slightly accentuated by less inspiration than on the previous exam. Lines and tubes appear unchanged in position. No evidence of pneumothorax. Metallic clips at the le ft supraclavicular level. IMPRESSION: Stable postoperative appearance of the chest. POS: TRAMAINE
[2018-09-17] MEDS: Vancomycin HCl 1 GM in Premix Bag 1 BAG IVPB SCH (09:54)
[2018-09-17] MEDS: Lisinopril 20 MG TAB PO SCH (09:55)
--- NOTE | 2018-09-17 12:24 | PRG ---
DATE OF SERVICE: 09/17/[address]. Brewer. Apparently, the pleural fluid looked really more like pus . Fluid in the Pleur-evac now is just bloody serous fluid. The biopsy of a lymph node that was size of a golf ball is all necrotic inflammatory debris, but no malignancy. He still has a spiculated mass in his right upper lobe and an oblong spiculated mass in his left upper lobe, which may be unrelated. I have asked the lab to stain pleural fluid for acid-fast bacilli and fungus and do cultures. Pathology specimens on the note are not available for culturing, but they will try to stain these for acid-fast bacilli. Sent fungal antibody panel, histoplasma urinary antigen, and QuantiFERON, but this really does not have the appearance of tuberculosis. Unfortunately, we probably should isolate until we know what he is dealing with. I suppose he could have a chronic aspiration empyema that is now sterile (similar to what happened in the old days before there was physician care). All these inflammatory lymph nodes could be related. The density in his abdomen could be related and most likely is I guess. This could be inflammatory massive lymph nodes or it actually could be another mass, but I do not feel he needs a percutaneous biopsy of this suprarenal density at this point in time. He just still has a significant air leak. We recommend that we turn his ventilator down slowly while we are awaiting the studies. PHYSICAL EXAMINATION: LUNGS: Clear anteriorly. HEART: Regular rhythm. ABDOMEN: Soft. EXTREMITIES: Without edema. LABORATORY DATA: White count 4.6, hemoglobin 9.5, and platelets 147,000. Sodium 136, potassium 3.6, chloride 111, bicarbonate 17, BUN 19, creatinine 0.67, bilirubin is 1.3, AST is 42, ALT is 10, albumin is 1.4, and globulin was 5.2 on admission. I suspect this is also inflammatory, but I have sent a serum protein electrophoresis. We will await special stains slowly decrease ventilatory support perhaps Thursday or Thursday we can consider weaning and extubation. We will transfer him to an isolation room, although I would be shocked if this was all tuberculosis and a primary tuberculous effusion. Critical care time, 30 minutes. Job ID: [id number]
[2018-09-17] MEDS ORDERED: Isoniazid 100 MG TAB PO SCH (16:00)
[2018-09-17] MEDS ORDERED: Rifampin 300 MG CAP PO SCH ×2 (16:00→16:15)
[2018-09-17] MEDS: Pravastatin Sodium 20 MG TAB PO SCH (20:59)
[2018-09-18] MEDS: fentaNYL Citrate/PF 2,000 MCG in Sodium Chloride 0.9% 60 ML IV SCH (00:06)
[2018-09-18] MEDS: Sodium Chloride 0.9% 1,000 ML IV SCH ×2 (01:30→07:45)
[2018-09-18 04:39] LABS: #Lymphocytes 0.4 thou/uL (1.20-3.40); #Monocytes 0.2 thou/uL (0.11-0.59); #Neutrophils 6.1 thou/uL (1.40-6.50); %Eosinophils 0.2 % (0.0-10.0); %Lymphocytes 5.3 % (21.0-51.0); %Monocytes 2.5 % (0.0-10.0); Hemoglobin 9.3 g/dL (14.0-18.0); Mean Corpuscular HGB CONC 30.3 g/dL (32.0-36.0); Mean Corpuscular Hemoglobin 27.8 pg (27.0-31.0); Mean Corpuscular Volume 91.6 fL (78.0-98.0); Mean Platelet Volume 8.6 fL (7.4-10.4); Platelet Count 154 thou/uL (130-400); Red Blood Cell (RBC) Count 3.35 mill/uL (4.70-6.10); White Blood Cell (WBC) Count 6.6 thou/uL (4.8-10.8)
[2018-09-18 04:57] LABS: ALT (SGPT) 8 U/L (8-55); AST (SGOT) 41 U/L (5-34); Albumin 1.4 g/dL (3.4-4.8); Alkaline Phosphatase 48 U/L (40-150); Anion Gap 8 mmol/L (10-20); BUN (Urea Nitrogen) 19 mg/dL (8.4-25.7); Bilirubin, Total 2.2 mg/dL (0.2-1.2); Calc. Creatinine Clearance 126 mL/min (70-130); Calcium 7.2 mg/dL (7.8-10.44); Carbon Dioxide 21 mmol/L (23-31); Chloride 112 mmol/L (98-107); Estimated GFR-MDRD Greater than 90; Globulin 4.3 g/dL (2.4-3.5); Glucose 89 mg/dL (80-115); Potassium 3.7 mmol/L (3.5-5.1); Protein, Total 5.7 g/dL (5.8-8.1); Sodium 137 mmol/L (136-145)
--- NOTE | 2018-09-18 07:36 | PDOC.FM ---
- Subjective Subjective: 63M who presented from group home with SOB and found to have likely TB. ICU day 4, s /p thoracotomy day 2. Overnight, nursing has no concern. - Objective MAR Reviewed: Yes Vital Signs & Weight: Vital Signs (12 hours) Temp Pulse Resp BP Pulse Ox 09/18/18 06:32 114 H 130/60 09/18/18 06:00 18 09/18/18 04:00 99.7 F H 14 09/18/18 03:15 119 H 116/58 L 09/18/18 02:00 14 09/18/18 00:58 116 H 09/18/18 00:00 99.4 F 14 09/17/18 22:17 113 H 128/70 09/17/18 22:00 14 09/17/18 20:00 99.1 F 14 97 Weight Admit Weight 78.471 kg Weight 78.7 kg Most Recent Monitor Data Heart Rate from ECG 114 NIBP 126/68 NIBP BP-Mean 87 Respiration from ECG 12 SpO2 96 I&O: 09/17/18 09/18/18 09/19/18 06:59 06:59 06:59 Intake Total 6377.1 2014 Output Total 3095 2095 Balance 3282.1 -80 Result Diagrams: 09/18/18 04:25 09/18/18 04:25 EKG Reviewed by me: Yes Radiology Reviewed by me: Yes Phys Exam - Physical Examination Constitutional: NAD HEENT: moist MMs, sclera anicteric Neck: no nodes, supple Respiratory: no wheezing, no rales, no rhonchi Mildly diminished left side. Cardiovascular: no significant murmur, no rub Gastrointestinal: soft, non-tender, no distention, positive bowel sounds Musculoskeletal: no edema, pulses present Neurological: non-focal, moves all 4 limbs Lymphatic: no nodes Psychiatric: normal affect Deviation from normal: Intubated, not sedated. Nod head appropriately. GCS10, intubated Skin: no rash, cap refill <2 seconds Dx/Plan (1) Acute respiratory failure with hypoxia and hypercapnia Code(s): J96.01 - ACUTE RESPIRATORY FAILURE WITH HYPOXIA; J96.02 - ACUTE RESPIRATORY FAILURE WITH HYPERCAPNIA Status: Acute Plan: Post op day 2, ICU day 4. Chest tube continue to drain, 100 from yesterday. Doing well on vent, taking spontaneous breath, satting well, O2 now at 37% Cause of this was likely TB, suspect mets cancer as well. Appreciate pulm and cv rec. (2) Tuberculosis Code(s): A15.9 - RESPIRATORY TUBERCULOSIS UNSPECIFIED Status: Acute Plan: Based on acid fast stain. ID has been consulted. TB medication started. Patient in isolation. (3) HLD (hyperlipidemia) Code(s): E78.5 - HYPERLIPIDEMIA, UNSPECIFIED Status: Acute Plan: Chronic stable issue. Continue home med when patient tolerate PO (4) HTN (hypertension) Code(s): I10 - ESSENTIAL (PRIMARY) HYPERTENSION Status: Acute Plan: Chronic issue At this time, will not give any BP med until patient off of pressure and BP well stabilized (5) History of hepatitis C Code(s): Z86.19 - PERSONAL HISTORY OF OTHER INFECTIOUS AND PARASITIC DISEASES Status: Acute Plan: Hx per patient and group home record. Will need to follow up with GI when recovered from his acute hospital stay. (6) Neoplasm /cancer Code(s): C80.1 - MALIGNANT (PRIMARY) NEOPLASM, UNSPECIFIED Status: Acute Plan: Suspect based on imaging Consulted pulm. When patient recovers, will possible work up further and consult onc as needed.
--- NOTE | 2018-09-18 07:52 | RAD ---
AP VIEW CHEST: Date: 09/18/18 INDICATION: Status post thoracotomy. COMPARISON: Prior exam dated 09/17/18. FINDINGS: Left-sided thoracostomy tubes are unchanged. Small lateral and basilar pneumothoraces persist. Increa sed chronic interstitial markings persist. Mild cardiomegaly is stable. Pleural parenchymal opacities along the left lung are stable. The patchy air space opacity in the right upper lung region is stabl e. Left subclavian central venous catheter, gastric catheter, and ET tubes are unchanged. IMPRESSION: 1. Stable left-sided thoracostomy tube. 2. Stable left lateral and basilar pneumothorax. 3. Chronic lung changes are similar appearing. Patchy air space opacities within both upper lobes ar e stable. POS: BH
[2018-09-18] MEDS: Lisinopril 20 MG TAB PO SCH (09:00)
[2018-09-18] MEDS ORDERED: Pyrazinamide 500 MG TAB PO SCH ×3 (09:00→16:00)
[2018-09-18] MEDS ORDERED: Ethambutol HCl 400 MG TAB PO SCH ×3 (09:00→16:00)
--- NOTE | 2018-09-18 09:33 | PRG ---
DATE OF SERVICE: 09/18/2018 SERVICE: Pulmonary Medicine. INTERVAL HISTORY: The patient is doing fine from respiratory standpoint. He denies any current chest pain, fevers, or chills. There are no significant overnight events. His AFB was positive. He is started on a quadruple drug therapy. ID consultation has been placed. He has a persistent air leak on the left. Otherwise, there were no significant overnight events. PHYSICAL EXAMINATION: VITAL SIGNS: Afebrile currently with a T-max of 99.7. His last temperature was on September 16, and it was 102.5. Pulse 114, blood pressure 111/54, respirations 12, saturation 96% on 31% FiO2 and a PEEP of 5. GENERAL: The patient is awake and alert, in no apparent distress. LUNGS: Rhonchi are present throughout bilateral lung garay. There is no prolonged expiratory phase. No wheezing or crackles are appreciated. HEART: Normal rate and regular. ABDOMEN: Soft, nontender, and nondistended. Bowel sounds are positive. MUSCULOSKELETAL: No cyanosis or clubbing. There is no pitting in the bilateral lower extremities. NEUROLOGIC: Grossly nonfocal. LABORATORY DATA: WBC 6.6, hemoglobin 9.3, and platelets 154,000. Basic metabolic profile is otherwise unremarkable. D-dimer 8. PH 7.47, pCO2 of 29, pO2 of 115. Potassium 3.7, creatinine 0.65, bicarb has improved. Chloride 112 and up-trending. AST, ALT, and alkaline phosphatase are all stable/unremarkable. Total bilirubin is gently up-trending. Microbiology is significantly positive for AFB. This [facility]. IMAGING: Chest x-ray demonstrates left-sided thoracostomy tube is in stable position. There is a left lateral and basilar pneumothorax. Chronic lung changes are similar without significant interval change. Endotracheal tube remains in good position. ASSESSMENT: 1. Acute hypoxic respiratory failure. 2. Disseminated tuberculosis. 3. Pleural effusion, studies pending. 4. History of hepatitis C. DISCUSSION AND PLAN: The patient should be on appropriate 4-drug regimen. ID consultation is currently pending. I will replace the potassium. We will put him on a spontaneous breathing trial, and if he meets criteria, extubation will be considered today. Pulmonary Critical Care will continue to follow along while the patient remains in the ICU. Ultimately, after he has cleared his inflammatory profile, he will need to have a repeat CT of the chest in 4 to 6 weeks to see whether or not there is any persistent lesion in the lung as there is a high incidence of cancer and tuberculosis coexistence. CRITICAL CARE TIME: 30 minutes. Job ID: [id number]
[2018-09-18] MEDS: Sodium Chloride 0.45% 1,000 ML IV SCH (11:04)
[2018-09-18] MEDS: pyridOXINE 50 MG (B6) TAB PO SCH (11:05)
[2018-09-18] MEDS: Isoniazid 100 MG TAB PO SCH (11:08)
[2018-09-18 17:27] LABS: HIV (1/2) Antibody/Antigen Non-Reactive (NonReactive); HIV 1/2 INDEX 0.07 S/CO (<1.00)
[2018-09-18 19:15] LABS: Syphilis Antibody INDETERMINATE (Nonreactive); Syphilis Titer Non-Reactive (Negative)
[2018-09-18] MEDS: Rifampin 300 MG CAP PO SCH (21:10)
[2018-09-18] MEDS: Pravastatin Sodium 20 MG TAB PO SCH (21:11)
--- NOTE | 2018-09-18 22:23 | CON ---
DATE OF CONSULTATION: 09/18/2018 REASON FOR CONSULTATION: Likely tuberculosis. HISTORY OF PRESENT ILLNESS: A 63-year-old initially admitted at the end of August when he presented with history of hypertension and chronic hepatitis C, who is incarcerated in [facility] and has developed chronic cough for the past month with the yellow sputum production, night sweats. He was eventually brought for evaluation and a chest x-ray showed a left lung effusion. CTA ruled out PE, but showed some areas of nodularity. The patient underwent surgical intervention on September 16 with decortication and resection of a 3 cm supraclavicular mass. The pathology demonstrated lymph node with caseating granulomatous reaction, AFB positive in all blocks tested. The fluid pathology was positive for inflammatory cells, extensive necrotic background, and positive acid-fast bacilli noted. The patient is currently intubated; he seems to be awake. He will follow some commands. He denies any headaches. He has no abdominal pain. He has some moderate pain in the chest wall from the two chest tubes on the left side. He has no pain in the lower extremities. MEDICAL HISTORY: Hypertension, chronic hep C with unknown history of treatment. PAST SURGICAL HISTORY: Negative. FAMILY HISTORY: Hypertension. SOCIAL HISTORY: Current smoker. Used to drink regularly from age of 18. No IV drug use. CURRENT MEDICATIONS: Hydrocodone p.r.n., inhalers, ethambutol, isoniazid, pyrazinamide and I think he has been given rifampin. PHYSICAL EXAMINATION: VITAL SIGNS: T-max 102.5, currently 99.7; blood pressure 102/52, pulse 108; O2 saturation 97%. SKIN: Just a few areas of excoriation in the appendicular structures skin. The patient has a central line and the chest tube on the left side following decortication. HEENT: Ocular movements conjugate. Pupils are equal and reactive. Arcus senilis noted. Orotracheal intubation. Numerous missing teeth. NECK: Without jugular vein distention. LUNGS: Coarse breath sounds bilaterally. Diminished breath sounds on the left side. HEART: S1 and S2, regular rate. ABDOMEN: Soft, not distended or tender. No ascites. No bladder distention. : Presley catheter in place. I's and O's are positive for the past 24 hours. Now, they are negative early on. EXTREMITIES: He seems to be able to move extremities. LABORATORY DATA: His white cell count was 5.7, now 6.6; hemoglobin 9.3; MCV 91; platelets 154; 92% neutrophils. Sodium 137, creatinine 0.65. AST 41, ALT 8, alkaline phosphatase 48, albumin 1.4, globulin 4.3. Legionella antigen and Strep pneumoniae antigen negative in urine. Microbiology with positive acid-fast from sputum, 3+. Two sets of blood culture, no growth thus far. 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 If not submitted yet, check his HIV serology and syphilis serology. Add rifampin to regimen if not added yet. Await for susceptibilities following cultures, expect them to reveal crawford-susceptible phenotype for the drugs administered. In care home, they have their own system for monitoring usually. The patient was transferred to [facility]. The treatment will be given under directly observed therapy and he will be in the isolation for a period of time. Epidemiological review of potential exposures and required interventions to be carried out by care home personnel. Job ID: [id number] [facility]
[2018-09-19] MEDS: Sodium Chloride 0.45% 1,000 ML IV SCH (00:24)
[2018-09-19 05:03] LABS: #Lymphocytes 0.5 thou/uL (1.20-3.40); #Monocytes 0.1 thou/uL (0.11-0.59); %Basophils 0.8 % (0.0-1.0); %Eosinophils 0.1 % (0.0-10.0); %Lymphocytes 8.3 % (21.0-51.0); %Monocytes 2.4 % (0.0-10.0); %Neutrophils 88.4 % (42.0-75.0); Hemoglobin 8.4 g/dL (14.0-18.0); Mean Corpuscular HGB CONC 30.2 g/dL (32.0-36.0); Mean Corpuscular Volume 92.6 fL (78.0-98.0); Mean Platelet Volume 8.9 fL (7.4-10.4); Platelet Count 126 thou/uL (130-400); RBC Distribution Width 15.3 % (11.5-14.5); Red Blood Cell (RBC) Count 3.01 mill/uL (4.70-6.10); White Blood Cell (WBC) Count 5.7 thou/uL (4.8-10.8)
[2018-09-19 05:27] LABS: ALT (SGPT) 9 U/L (8-55); AST (SGOT) 42 U/L (5-34); Albumin 1.2 g/dL (3.4-4.8); Alkaline Phosphatase 42 U/L (40-150); Anion Gap 9 mmol/L (10-20); BUN (Urea Nitrogen) 20 mg/dL (8.4-25.7); Bilirubin, Total 1.5 mg/dL (0.2-1.2); Calc. Creatinine Clearance 146 mL/min (70-130); Calcium 6.7 mg/dL (7.8-10.44); Carbon Dioxide 20 mmol/L (23-31); Chloride 113 mmol/L (98-107); Estimated GFR-MDRD Greater than 90; Globulin 3.8 g/dL (2.4-3.5); Glucose 75 mg/dL (80-115); Potassium 3.7 mmol/L (3.5-5.1); Sodium 138 mmol/L (136-145)
--- NOTE | 2018-09-19 07:50 | PDOC.FM ---
- Subjective Subjective: No reported incidents overnight by nursing. Patient in bed and currently having breathing treatment. He denies having any issue except for some shortness of breath. He was extubated yesterday afternoon and is on NC. - Objective MAR Reviewed: Yes Vital Signs & Weight: Vital Signs (12 hours) Temp Pulse Resp Pulse Ox 09/19/18 07:00 90 20 09/19/18 04:00 98.8 F 09/18/18 23:11 89 16 97 09/18/18 20:00 100 Weight Admit Weight 78.471 kg Weight 79.1 kg Most Recent Monitor Data Heart Rate from ECG 93 NIBP 116/73 NIBP BP-Mean 87 Respiration from ECG 21 SpO2 95 I&O: 09/18/18 09/19/18 09/20/18 06:59 06:59 06:59 Intake Total 2014 3608.6 Output Total 5 1737 Balance -80 1871.6 Result Diagrams: 09/19/18 04:05 09/19/18 04:05 Phys Exam - Physical Examination Constitutional: NAD HEENT: moist MMs, sclera anicteric Left side lung, high pitch soudns that may be due to chest tube Otherwise, good air movement, no labored breathing. Cardiovascular: RRR, no significant murmur, no rub Gastrointestinal: soft, non-tender, no distention Musculoskeletal: no edema Neurological: non-focal, moves all 4 limbs Psychiatric: normal affect, A&O x 3 Skin: no rash Dx/Plan (1) Acute respiratory failure with hypoxia and hypercapnia Code(s): J96.01 - ACUTE RESPIRATORY FAILURE WITH HYPOXIA; J96.02 - ACUTE RESPIRATORY FAILURE WITH HYPERCAPNIA Status: Acute Plan: Post op day 3, ICU day 5. Chest tube continue to drain, 520 out from yesterday Is now on NC, sating appropriately Cause of this was likely TB, suspect mets cancer as well. Appreciate id, pulm and cv rec. (2) Tuberculosis Code(s): A15.9 - RESPIRATORY TUBERCULOSIS UNSPECIFIED Status: Acute Plan: Based on acid fast stain. ID has been consulted. TB medication started. Patient in isolation. Patient is currently improving from respiratory standpoint. He no longer requires levophed. Appreciate pulm and ID rec. Patient will likely need to complete treatment back in intermediate. Will place CM for any paperwork that may be need to be done. (3) HLD (hyperlipidemia) Code(s): E78.5 - HYPERLIPIDEMIA, UNSPECIFIED Status: Acute Plan: Chronic stable issue. Continue home med when patient tolerate PO (4) HTN (hypertension) Code(s): I10 - ESSENTIAL (PRIMARY) HYPERTENSION Status: Acute Plan: Chronic issue At this time, will not give any BP med until patient off of pressure and BP well stabilized (5) History of hepatitis C Code(s): Z86.19 - PERSONAL HISTORY OF OTHER INFECTIOUS AND PARASITIC DISEASES Status: Acute Plan: Hx per patient and intermediate record. Will need to follow up with GI when recovered from his acute hospital stay. (6) Neoplasm /cancer Code(s): C80.1 - MALIGNANT (PRIMARY) NEOPLASM, UNSPECIFIED Status: Acute Plan: Suspect based on imaging Consulted pulm. When patient recovers, will possible work up further and consult onc as needed.
--- NOTE | 2018-09-19 08:37 | RAD ---
CHEST 1 VIEW: Date: 09/19/18 INDICATION: History of thoracotomy. COMPARISON: Prior exam dated 09/18/18. FINDINGS: Left side thoracostomy tubes are unchanged. Left-sided pneumothorax is similar appearing. Bilateral p arenchymal opacities are stable. Cardiomegaly is similar appearing. The patient has been extubated. L eft subclavian central venous catheter is unchanged. IMPRESSION: Interval extubation, but otherwise stable exam. POS: BH
[2018-09-19] MEDS: Ethambutol HCl 400 MG TAB PO SCH (09:02)
[2018-09-19] MEDS: Pyrazinamide 500 MG TAB PO SCH (09:03)
[2018-09-19] MEDS: Rifampin 300 MG CAP PO SCH ×2 (09:04→23:08)
[2018-09-19] MEDS: pyridOXINE 50 MG (B6) TAB PO SCH (09:04)
[2018-09-19] MEDS: Isoniazid 100 MG TAB PO SCH (09:05)
[2018-09-19] MEDS ORDERED: Furosemide 20 MG/2 ML VIAL SLOW IVP SCH (10:15)
[2018-09-19] MEDS ORDERED: Senokot S 8.6-50 MG TAB PO SCH (10:15)
[2018-09-19] MEDS ORDERED: Milk Of Magnesia 30 ML UDCUP PO SCH (10:15)
[2018-09-19] MEDS ORDERED: Mineral Oil PER 1 ML PO SCH (10:15)
[2018-09-19] MEDS ORDERED: Calcium Gluc 4.6 MEQ/10 ML (100 MG/ML) SLOW IVP SCH (10:20)
--- NOTE | 2018-09-19 10:24 | PRG ---
DATE OF SERVICE: 09/19/2018 SERVICE: Pulmonary Medicine. INTERVAL HISTORY: The patient is doing fine from respiratory standpoint. He is having increasing abdominal distention. After he took his pills this morning, he had significant amounts of belching. He did have bowel movement since he has been here. He is having increasing lower extremity swelling. Otherwise, there has been no interval change to his condition. PHYSICAL EXAMINATION: VITAL SIGNS: Afebrile, pulse 88, blood pressure 113/70, respirations 16, and saturation 96% on 2 L nasal cannula. GENERAL: The patient is awake and alert, in no apparent distress. LUNGS: Decent air entry with no prolonged expiratory phase. Dependent crackles are present. Rhonchi are also noted. There is no prolonged expiratory phase or wheezing appreciated. HEART: Normal rate and regular. ABDOMEN: Soft. It is distended. Bowel sounds are present. There is no rebound or guarding present. MUSCULOSKELETAL: No cyanosis or clubbing. Diffuse 1 to 2+ pitting throughout is present. GENITOURINARY: Presley catheter in place. NEUROLOGIC: Grossly nonfocal. LABORATORY DATA: WBC 5.7, hemoglobin 8.4, platelets 126,000 and falling off. A pH 7.47, pCO2 of 29, pO2 of 115. Potassium 3.7, bicarb 20, creatinine 0.56 with a normal BUN. Chloride 113, total bilirubin is downtrending, and AST is stable. Acid-fast bacilli is positive in the sputum. Blood cultures x2 are unremarkable. IMAGING STUDIES: Chest x-ray demonstrates interval extubation, but otherwise is stable exam with unchanged left-sided thoracostomy drain, hydropneumothorax on the left. ASSESSMENT: 1. Acute hypoxic respiratory failure, improving. 2. Disseminated tuberculosis. 3. Pleural effusions. 4. Chronic hepatitis C. DISCUSSION AND PLAN: We will continue antibiotics through time. He has a persistent air leak, so the thoracostomy drain will need to remain in place. Multiple medications in order to facilitate a bowel movement. Also gave provided with a dose of Lasix. Potassium will be replaced preemptively. Job ID: [id number]
[2018-09-19 19:08] LABS: HIV-1 Quantitative, RNA PCR <20 copies/mL (.)
[2018-09-19] MEDS: Ondansetron PF 4 MG/2 ML Vial IVP PRN (20:23)
[2018-09-19] MEDS: Pravastatin Sodium 20 MG TAB PO SCH (23:08)
[2018-09-20] MEDS: Ondansetron PF 4 MG/2 ML Vial IVP PRN ×2 (03:32→09:49)
--- NOTE | 2018-09-20 05:40 | PDOC.FM ---
- Subjective Subjective: Pt reports doing well this morning. Resting in bed. A&Ox3. Pt denies any pain at this time. Denies any fever or chills. Denies any acute events overnight. Denies any chest pain. + - Objective MAR Reviewed: Yes Vital Signs & Weight: Vital Signs (12 hours) Temp Pulse Resp Pulse Ox 09/20/18 04:00 97.9 F 09/20/18 00:00 98.6 F 09/19/18 23:01 105 H 22 H 96 09/19/18 20:00 98.4 F 97 09/19/18 18:59 93 L 09/19/18 18:57 106 H 24 H 93 L Weight Admit Weight 78.471 kg Weight 79.1 kg Most Recent Monitor Data Heart Rate from ECG 106 NIBP 136/83 NIBP BP-Mean 100 Respiration from ECG 22 SpO2 95 I&O: 09/18/18 09/19/18 09/20/18 06:59 06:59 06:59 Intake Total 2014 3608.6 1132 Output Total 5 1737 1335 Balance -80 1871.6 -203 Result Diagrams: 09/20/18 Unknown 09/20/18 Unknown EKG Reviewed by me: Yes Radiology Reviewed by me: Yes (Official read pending. Seems to have some mild improvement) Phys Exam - Physical Examination Constitutional: NAD HEENT: PERRLA Neck: no nodes, no JVD, supple, full ROM some mild rales and crackles bilaterally. Decreased breath sounds on L. Cardiovascular: no significant murmur, no rub Pt sinus tachy. Regular Rhythm. Gastrointestinal: soft, non-tender, no distention, positive bowel sounds Musculoskeletal: no edema, pulses present Neurological: non-focal, moves all 4 limbs Psychiatric: normal affect, A&O x 3 Skin: no rash, normal turgor, cap refill <2 seconds Dx/Plan (1) Tuberculosis Code(s): A15.9 - RESPIRATORY TUBERCULOSIS UNSPECIFIED Status: Acute (2) Acute respiratory failure with hypoxia and hypercapnia Code(s): J96.01 - ACUTE RESPIRATORY FAILURE WITH HYPOXIA; J96.02 - ACUTE RESPIRATORY FAILURE WITH HYPERCAPNIA Status: Acute (3) Pleural effusion Code(s): J90 - PLEURAL EFFUSION, NOT ELSEWHERE CLASSIFIED Status: Acute (4) Neoplasm /cancer Code(s): C80.1 - MALIGNANT (PRIMARY) NEOPLASM, UNSPECIFIED Status: Acute (5) Pneumonia Code(s): J18.9 - PNEUMONIA, UNSPECIFIED ORGANISM Status: Acute (6) HLD (hyperlipidemia) Code(s): E78.5 - HYPERLIPIDEMIA, UNSPECIFIED Status: Acute (7) HTN (hypertension) Code(s): I10 - ESSENTIAL (PRIMARY) HYPERTENSION Status: Acute (8) History of hepatitis C Code(s): Z86.19 - PERSONAL HISTORY OF OTHER INFECTIOUS AND PARASITIC DISEASES Status: Acute - Plan Plan: (1) Acute respiratory failure with hypoxia and hypercapnia Post op day 4, ICU day 4. Chest tube still in place. Air leak noted. No new drainage noted. Is now on NC, sating appropriately. Will continue to wean as tolerated Cause of this was likely TB, suspect mets cancer as well. Pulm Consulted- Follow recs CV surgery consulted- follow recs (2) Tuberculosis Based on acid fast stain. ID has been consulted. RIPE therapy initiated. Patient in isolation. Patient is currently improving from respiratory standpoint. Pulm consulted- follow recs ID consulted- follow recs Patient will likely need to complete treatment back in senior care. Will place CM for any paperwork that may be need to be done. (3) HLD (hyperlipidemia) Chronic stable issue. Continue home med when patient tolerate PO (4) HTN (hypertension) -Will contnue to hold BP medication at this time. Stable. (5) History of hepatitis C Hx per patient and senior care record. Will need to follow up with GI when recovered from his acute hospital stay. (6) Neoplasm /cancer Suspect based on imaging Consulted pulm. When patient recovers, will possible work up further and consult onc as needed. Addendum - Attending - Attending Attestation Date/Time: 09/20/18 2598 I personally evaluated the patient and discussed the management with Dr. Myers. I agree with the History, Examination, Assessment and Plan documented above with any addition or exceptions noted below. Patient here for complicated TB infection. S/P decortication and multiple biopsies that show granulomatous disease with MTB organisms. He is on RIPE therapy and ID/Pulm consulted. Will need to ensure he does not decline therapy. Has air leak from chest tube, await healing. He denies pain or dyspnea this morning. Replete K. Will ensure he is having bowel movements versus small ileus. Denies abdominal pain at this time. Monitor tachycardia but no chest pain or evidence of cardiac pathology.
[2018-09-20] MEDS ORDERED: Furosemide 20 MG/2 ML VIAL SLOW IVP SCH (06:00)
[2018-09-20 06:04] LABS: #Lymphocytes 0.5 thou/uL (1.20-3.40); #Monocytes 0.2 thou/uL (0.11-0.59); %Eosinophils 0.1 % (0.0-10.0); %Lymphocytes 7.5 % (21.0-51.0); %Monocytes 3.6 % (0.0-10.0); %Neutrophils 88.8 % (42.0-75.0); Hemoglobin 10.1 g/dL (14.0-18.0); Mean Corpuscular HGB CONC 30.9 g/dL (32.0-36.0); Mean Corpuscular Hemoglobin 28.1 pg (27.0-31.0); Mean Platelet Volume 8.7 fL (7.4-10.4); Platelet Count 131 thou/uL (130-400); RBC Distribution Width 15.6 % (11.5-14.5); Red Blood Cell (RBC) Count 3.59 mill/uL (4.70-6.10); White Blood Cell (WBC) Count 6.7 thou/uL (4.8-10.8)
[2018-09-20 06:23] LABS: ALT (SGPT) 12 U/L (8-55); AST (SGOT) 49 U/L (5-34); Albumin 1.4 g/dL (3.4-4.8); Alkaline Phosphatase 61 U/L (40-150); Anion Gap 10 mmol/L (10-20); BUN (Urea Nitrogen) 31 mg/dL (8.4-25.7); Bilirubin, Total 1.2 mg/dL (0.2-1.2); Calc. Creatinine Clearance 124 mL/min (70-130); Calcium 7.5 mg/dL (7.8-10.44); Carbon Dioxide 22 mmol/L (23-31); Chloride 107 mmol/L (98-107); Estimated GFR-MDRD Greater than 90; Globulin 4.5 g/dL (2.4-3.5); Glucose 112 mg/dL (80-115); Potassium 3.3 mmol/L (3.5-5.1); Protein, Total 5.9 g/dL (5.8-8.1); Sodium 136 mmol/L (136-145)
[2018-09-20] MEDS ORDERED: Potassium Chloride 20 MEQ TAB PO SCH (06:30)
--- NOTE | 2018-09-20 08:45 | RAD ---
FRONTAL RADIOGRAPH CHEST: Date: 09/20/18 COMPARISON: 09/19/18. HISTORY: Evaluate chest following thoracotomy. FINDINGS: Two stable left-sided chest tubes are in place. There is subcutaneous emphysema in the supraclavicula r region and lateral left chest wall, new when compared to the prior exam. There is a pneumothorax on the left, primarily within the left base/costophrenic angle region, stable. Heart and mediastinal co ntours are unchanged. Stable vascular catheter on the left, which may terminate in the region of the azygos vein. Mild increased linear interstitial density noted in the right base, stable. IMPRESSION: Postoperative changes as detailed above. New subcutaneous emphysema within the chest wall on the left . Stable left-sided pneumothorax, primarily in the left base/costophrenic angle. POS: [facility]
[2018-09-20] MEDS: Isoniazid 100 MG TAB PO SCH (09:49)
[2018-09-20] MEDS: Pyrazinamide 500 MG TAB PO SCH (09:49)
[2018-09-20] MEDS: pyridOXINE 50 MG (B6) TAB PO SCH (09:50)
[2018-09-20] MEDS: Rifampin 300 MG CAP PO SCH ×2 (09:50→22:37)
[2018-09-20] MEDS: Ethambutol HCl 400 MG TAB PO SCH (09:50)
--- NOTE | 2018-09-20 10:05 | PRG ---
DATE OF SERVICE: ADDENDUM: Please see the note from Dr. Bolden, for which I agree. The patient was seen, evaluated, examined, and discussed with the residents at bedside. This gentleman was seen and is currently in the ICU, still on a ventilator after having a large left-sided pleural effusion that required thoracotomy and exploration and that it was actually active tuberculosis. Have masses in the lungs, but not sure if these all represent tuberculomas or potentially of cancer as well. But currently on management for TB and still on some antibiotics for the possibility of this being a bacterial pneumonia superimposed. Pulmonary and Cardiovascular Surgery are obviously following alongside. I will see that we have had any reports of malignancy based on any of the current pathology results. So likely, pretty stable on the CT assuming he will be extubated today and we will continue the TB management in the ICU. Eventually, I am going to repeat the CT to see if this is actually a cancer in addition to the TB. Job ID: [id number]
--- NOTE | 2018-09-20 10:14 | PRG ---
DATE OF SERVICE: 09/19/2018 ADDENDUM: This is an addendum to the progress note from Dr. Bolden. The patient was seen, evaluated, and examined with the residents by bedside. The patient is still in the ICU. Still has a chest tube in, but has been extubated and is now off the pressors and is improving. Getting 4 meds for the TB and also still on the same IV antibiotics as well. Hence, the plan is to continue same management. His lungs sound pretty good, it is little bit decreased on the left. But, obviously in the next few days, hopefully, we will be able to get the chest tube out and we will continue him in contact isolation and will need long-term TB medications and then he is going to follow up on the CT findings of the masses in his lungs to help us better figure out if this is cancer or tuberculomas. The patient seemed to understand. No questions or complaints today. Job ID: [id number]
--- NOTE | 2018-09-20 15:30 | PRG ---
DATE OF SERVICE: 09/20/2018 SUBJECTIVE: Vu Babb continues with the chest tube to suction. He still has space in his left base where his lung has not completely expanded. He says he is feeling better. He started to feel like eating. OBJECTIVE: VITAL SIGNS: Heart rate is 120, respiratory rate is in the teens, oximetry is 95% on 2 L. LUNGS: Unchanged. HEART: Unchanged. ABDOMEN: Unchanged. LABORATORY DATA: White count 6.7, hemoglobin 10.1, platelets 131. Sodium 136, potassium 3.3, chloride 107, bicarb 22, BUN 31, creatinine 0.66. IMPRESSION: Disseminated tuberculosis. Once his chest tube is out, he can be considered for transfer to [facility] or to [facility] inpatient [place]. He could actually be transferred prior to removal of the chest tube. They would take him, but seems like the last few years whenever we try to transfer anyone to the [facility] as an inpatient, hospital in [place] is full. Obviously, he will need to have repeat imaging of his lung parenchyma 6 to 8 weeks out to see if these upper lobe densities that could be masses improve with antituberculous therapy. The conglomeration of nodes in the left abdominal mass versus conglomeration of nodes will also need to be re-imaged. He will remain in isolation. Job ID: [id number]
[2018-09-20] MEDS: Pravastatin Sodium 20 MG TAB PO SCH (19:38)
[2018-09-21 06:21] LABS: ALT (SGPT) 14 U/L (8-55); AST (SGOT) 46 U/L (5-34); Albumin 1.4 g/dL (3.4-4.8); Alkaline Phosphatase 73 U/L (40-150); Anion Gap 8 mmol/L (10-20); BUN (Urea Nitrogen) 29 mg/dL (8.4-25.7); Bilirubin, Total 1.2 mg/dL (0.2-1.2); Calc. Creatinine Clearance 134 mL/min (70-130); Calcium 7.4 mg/dL (7.8-10.44); Carbon Dioxide 24 mmol/L (23-31); Chloride 106 mmol/L (98-107); Estimated GFR-MDRD Greater than 90; Globulin 4.2 g/dL (2.4-3.5); Glucose 87 mg/dL (80-115); Potassium 3.4 mmol/L (3.5-5.1); Protein, Total 5.6 g/dL (5.8-8.1); Sodium 135 mmol/L (136-145)
[2018-09-21 06:40] LABS: #Lymphocytes 0.5 thou/uL (1.20-3.40); #Monocytes 0.2 thou/uL (0.11-0.59); #Neutrophils 5.2 thou/uL (1.40-6.50); %Eosinophils 0.7 % (0.0-10.0); %Lymphocytes 8.8 % (21.0-51.0); %Monocytes 3.6 % (0.0-10.0); %Neutrophils 86.9 % (42.0-75.0); Hemoglobin 9.7 g/dL (14.0-18.0); MDiff Complete? YES; Mean Corpuscular HGB CONC 30.8 g/dL (32.0-36.0); Mean Corpuscular Volume 90.9 fL (78.0-98.0); Mean Platelet Volume 9.2 fL (7.4-10.4); Platelet Count 118 thou/uL (130-400); Platelet Morphology Comment Appears Decreased; RBC Distribution Width 15.8 % (11.5-14.5); Red Blood Cell (RBC) Count 3.48 mill/uL (4.70-6.10); Target Cells SLIGHT = 2-5 cells (100X) (0-1/hpf)
--- NOTE | 2018-09-21 06:54 | PDOC.FM ---
- Subjective Subjective: Pt comfortable at this time. Denies any pain. Denies any acute events overnight. A&Ox2. No oriented to place. Pt deneis any chest pain. Denies any acute SOB. Pt has no concerns or complaints at this time. Nursing concerned about possible new Subq emphysema. Nurse says chest tube was not fully hooked to suction for a period overnight. - Objective MAR Reviewed: Yes Vital Signs & Weight: Vital Signs (12 hours) Temp Pulse Resp Pulse Ox 09/21/18 06:44 98 09/21/18 06:39 85 15 98 09/21/18 04:00 97.1 F L 09/21/18 00:42 98 09/21/18 00:00 98.3 F 09/20/18 20:00 96 09/20/18 19:00 97.5 F L Weight Admit Weight 78.471 kg Weight 78.7 kg Most Recent Monitor Data Heart Rate from ECG 90 NIBP 116/67 NIBP BP-Mean 83 Respiration from ECG 16 SpO2 98 I&O: 09/19/18 09/20/18 09/21/18 06:59 06:59 06:59 Intake Total 3608.6 1162 1050 Output Total 1737 1450 1325 Balance 1871.6 -288 -275 Result Diagrams: 09/21/18 05:00 09/21/18 03:30 EKG Reviewed by me: Yes (Sinus rhythm) Radiology Reviewed by me: Yes (Official read pending. appears stable) Phys Exam - Physical Examination Constitutional: NAD HEENT: PERRLA, moist MMs Neck: supple, full ROM Rales, crackles noted on left lobe. Decreased breath sounds on L. Cardiovascular: RRR, no significant murmur, no rub Gastrointestinal: soft, non-tender, no distention, positive bowel sounds Musculoskeletal: no edema, pulses present Neurological: non-focal, moves all 4 limbs Psychiatric: normal affect, A&O x 3 Skin: no rash, normal turgor, cap refill <2 seconds Dx/Plan (1) Tuberculosis Code(s): A15.9 - RESPIRATORY TUBERCULOSIS UNSPECIFIED Status: Acute (2) Acute respiratory failure with hypoxia and hypercapnia Code(s): J96.01 - ACUTE RESPIRATORY FAILURE WITH HYPOXIA; J96.02 - ACUTE RESPIRATORY FAILURE WITH HYPERCAPNIA Status: Acute (3) Pleural effusion Code(s): J90 - PLEURAL EFFUSION, NOT ELSEWHERE CLASSIFIED Status: Acute (4) Neoplasm /cancer Code(s): C80.1 - MALIGNANT (PRIMARY) NEOPLASM, UNSPECIFIED Status: Acute (5) Pneumonia Code(s): J18.9 - PNEUMONIA, UNSPECIFIED ORGANISM Status: Acute (6) HLD (hyperlipidemia) Code(s): E78.5 - HYPERLIPIDEMIA, UNSPECIFIED Status: Acute (7) HTN (hypertension) Code(s): I10 - ESSENTIAL (PRIMARY) HYPERTENSION Status: Acute (8) History of hepatitis C Code(s): Z86.19 - PERSONAL HISTORY OF OTHER INFECTIOUS AND PARASITIC DISEASES Status: Acute - Plan Plan: (1) Acute respiratory failure with hypoxia and hypercapnia Post op day 5, ICU day 5. Chest tube still in place. Air leak noted. 500 noted overnight. Is now on NC, sating appropriately. Will continue to wean as tolerated Cause of this was likely TB, suspect mets cancer as well. Will need repeat imaging later. Pulm Consulted- Follow recs CV surgery consulted- follow recs (2) Tuberculosis Based on acid fast stain. ID has been consulted. RIPE therapy initiated. Patient in isolation. Patient is currently improving from respiratory standpoint. Pulm consulted- follow recs ID consulted- follow recs Pt will be transferred to [place]. Possibly could go on chest tube. 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 (3) HLD (hyperlipidemia) -Continue home meds (4) HTN (hypertension) -Will contnue to hold BP medication at this time. Stable. (5) History of hepatitis C Hx per patient and snf record. Will need to follow up with GI when recovered from his acute hospital stay. (6) Neoplasm /cancer Suspect based on imaging Consulted pulm. When patient recovers, will possible work up further and consult onc as needed. Addendum - Attending - Attending Attestation Date/Time: 09/21/18 4872 I personally evaluated the patient and discussed the management with Dr. Myers. I agree with the History, Examination, Assessment and Plan documented above with any addition or exceptions noted below. Patient continues on treatment for TB. Awaiting stability for chest tube removal and then suspect at that time he will be stable for discharge to [facility] or [facility] for further care.
[2018-09-21] MEDS ORDERED: Potassium Chloride 20 MEQ TAB PO SCH (07:00)
--- NOTE | 2018-09-21 08:30 | RAD ---
CHEST 1 VIEW: INDICATION: Status post thoracotomy. COMPARISON: Prior exam dated 09/20/2018. FINDINGS: Left sided thoracostomy tubes are unchanged. Small left lateral and basilar pneumothorax persist. T he right lung is clear. Mild cardiomegaly is stable. Left subclavian central venous catheter is sim ilar-appearing. The subcutaneous emphysema is slightly worse extending into the neck base. IMPRESSION: 1. Slight worsening of the subcutaneous emphysema extending into the neck base. 2. Stable small left-sided pneumothorax. 3. Stable thoracostomy tubes and left subclavian central venous catheter. POS: [facility]
[2018-09-21] MEDS: Ondansetron PF 4 MG/2 ML Vial IVP PRN ×2 (08:36→21:06)
[2018-09-21] MEDS: Pyrazinamide 500 MG TAB PO SCH (09:07)
[2018-09-21] MEDS: Rifampin 300 MG CAP PO SCH ×2 (09:08→21:05)
[2018-09-21] MEDS: pyridOXINE 50 MG (B6) TAB PO SCH (09:09)
[2018-09-21] MEDS: Isoniazid 100 MG TAB PO SCH (09:09)
[2018-09-21] MEDS: Ethambutol HCl 400 MG TAB PO SCH (09:10)
[2018-09-21] MEDS ORDERED: Enoxaparin Sodium 40 MG/0.4 ML SYRINGE SC SCH (10:15)
--- NOTE | 2018-09-21 15:55 | PRG ---
DATE OF SERVICE: 09/21/2018 SUBJECTIVE: Vu Babb feeling much better, but I have explained to him that recovery from this will be a slow process. OBJECTIVE: VITAL SIGNS: Heart rate is 110, blood pressure 115/78, respiratory rates in the teens, oximetry is 98% on a cannula. LUNGS: Remarkable for faint rhonchi on the left. The right lung is clear. HEART: Regular rhythm. ABDOMEN: Soft. LABORATORY DATA: White count 6.0, hemoglobin 9.7, platelets 118. Sodium 135, potassium 3.4, chloride 106, bicarb 24, BUN 29, creatinine 0.6. Albumin is 1.4. IMPRESSION: Disseminated tuberculosis. At this point, it must be presumed that his pulmonary parenchymal abnormalities and his intra-abdominal abnormalities are related to tuberculosis. After 4 to 8 weeks of therapy, a repeat noncontrast CT should be entertained as well as a dedicated abdominal CT with contrast. Within 1 to 2 months, we should see some improvement of these abnormalities. As I have explained to him that he still could have lung cancer, and this conglomeration of lymph nodes in his abdomen in the area of his left adrenal could be malignant, but working that up at this time would not be appropriate in my opinion. I do believe can be explained by "consumption" or disseminated tuberculosis. We will have to wait for sensitivities. He is stable for transfer to the [facility] when a bed becomes available. Job ID: [id number]
[2018-09-21] MEDS: Pravastatin Sodium 20 MG TAB PO SCH (21:05)
[2018-09-22 04:20] LABS: #Lymphocytes 0.5 thou/uL (1.20-3.40); #Monocytes 0.2 thou/uL (0.11-0.59); #Neutrophils 6.1 thou/uL (1.40-6.50); %Eosinophils 0.5 % (0.0-10.0); %Lymphocytes 6.8 % (21.0-51.0); %Monocytes 2.9 % (0.0-10.0); %Neutrophils 89.8 % (42.0-75.0); Hemoglobin 9.4 g/dL (14.0-18.0); Mean Corpuscular HGB CONC 30.8 g/dL (32.0-36.0); Mean Corpuscular Volume 90.8 fL (78.0-98.0); Mean Platelet Volume 9.2 fL (7.4-10.4); Platelet Count 107 thou/uL (130-400); Red Blood Cell (RBC) Count 3.34 mill/uL (4.70-6.10); White Blood Cell (WBC) Count 6.8 thou/uL (4.8-10.8)
[2018-09-22 04:28] LABS: ALT (SGPT) 21 U/L (8-55); AST (SGOT) 69 U/L (5-34); Albumin 1.3 g/dL (3.4-4.8); Alkaline Phosphatase 75 U/L (40-150); Anion Gap 8 mmol/L (10-20); BUN (Urea Nitrogen) 23 mg/dL (8.4-25.7); Bilirubin, Total 1.5 mg/dL (0.2-1.2); Calc. Creatinine Clearance 136 mL/min (70-130); Calcium 7.1 mg/dL (7.8-10.44); Carbon Dioxide 24 mmol/L (23-31); Chloride 106 mmol/L (98-107); Estimated GFR-MDRD Greater than 90; Globulin 4.3 g/dL (2.4-3.5); Glucose 81 mg/dL (80-115); Potassium 3.4 mmol/L (3.5-5.1); Protein, Total 5.6 g/dL (5.8-8.1); Sodium 135 mmol/L (136-145)
--- NOTE | 2018-09-22 07:56 | PDOC.FM ---
- Subjective Subjective: Pt again somewhat confused this morning. Denies any acute SOB. Pt reports some pain at chest tube insertion site. Pt denies any n/v/d/c. Denies any chest pain. No acute events recorded overnight or reported by nursing. - Objective MAR Reviewed: Yes Vital Signs & Weight: Vital Signs (12 hours) Temp Pulse Resp Pulse Ox 09/22/18 07:39 100 09/22/18 07:07 99 22 H 100 09/22/18 07:00 98.1 F 09/22/18 06:00 97.7 F 09/22/18 01:00 97 F L 09/21/18 23:38 99 16 100 09/21/18 22:00 98.8 F 09/21/18 20:00 100 Weight Admit Weight 78.471 kg Weight 78.1 kg Most Recent Monitor Data Heart Rate from ECG 95 NIBP 131/69 NIBP BP-Mean 89 Respiration from ECG 18 SpO2 100 I&O: 09/21/18 09/22/18 09/23/18 06:59 06:59 06:59 Intake Total 1050 270 Output Total 1395 1685 90 Balance -345 -1415 -90 Result Diagrams: 09/22/18 03:50 09/22/18 03:50 Radiology Reviewed by me: Yes (Official read on Cxray pending today.) Radiology: 2/5 CXR; Slight worsening of subq emphysema extending to next. Stable small left sided pneumothorax Phys Exam - Physical Examination Constitutional: NAD HEENT: PERRLA, moist MMs Neck: no JVD, supple, full ROM Crackles, Rales and decreased breath sounds on the left side. Rales noted on the right. Cardiovascular: RRR, no significant murmur, no rub Gastrointestinal: soft, non-tender, positive bowel sounds Mildly distended Musculoskeletal: pulses present +1 pitting edema in LE bilaterally Neurological: non-focal, normal sensation, moves all 4 limbs Deviation from normal: Pt somewhat confused this morning. Skin: no rash, normal turgor, cap refill <2 seconds Dx/Plan (1) Tuberculosis Code(s): A15.9 - RESPIRATORY TUBERCULOSIS UNSPECIFIED Status: Acute (2) Acute respiratory failure with hypoxia and hypercapnia Code(s): J96.01 - ACUTE RESPIRATORY FAILURE WITH HYPOXIA; J96.02 - ACUTE RESPIRATORY FAILURE WITH HYPERCAPNIA Status: Acute (3) Pleural effusion Code(s): J90 - PLEURAL EFFUSION, NOT ELSEWHERE CLASSIFIED Status: Acute (4) Neoplasm /cancer Code(s): C80.1 - MALIGNANT (PRIMARY) NEOPLASM, UNSPECIFIED Status: Acute (5) Pneumonia Code(s): J18.9 - PNEUMONIA, UNSPECIFIED ORGANISM Status: Acute (6) HLD (hyperlipidemia) Code(s): E78.5 - HYPERLIPIDEMIA, UNSPECIFIED Status: Acute (7) HTN (hypertension) Code(s): I10 - ESSENTIAL (PRIMARY) HYPERTENSION Status: Acute (8) History of hepatitis C Code(s): Z86.19 - PERSONAL HISTORY OF OTHER INFECTIOUS AND PARASITIC DISEASES Status: Acute - Plan Plan: Acute respiratory failure with hypoxia and hypercapnia Post op day 6, ICU day 6. Chest tube still in place. Air leak noted. Drained 30 ml overnight. Is now on NC, sating appropriately. Will continue to wean as tolerated Cause of this was likely TB, suspect mets cancer as well. Will need repeat imaging later per pulm recs. Pulm Consulted- Follow recs CV surgery consulted- follow recs Tuberculosis Based on acid fast stain. ID has been consulted. RIPE therapy initiated. Patient in isolation. Patient is currently improving from respiratory standpoint. Pulm consulted- follow recs ID consulted- follow recs Pt will be transferred to [place]. Possibly could go on chest tube. 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 Hematuria -Pt having some blood tinge to urine. Pt not complaining of urinary sx's. May consider workup or consult if clots are noted or worsens. HLD (hyperlipidemia) -Continue home meds HTN (hypertension) -Will contnue to hold BP medication at this time. Stable. History of hepatitis C Hx per patient and senior care record. Will need to follow up with GI when recovered from his acute hospital stay. Neoplasm /cancer Suspect based on imaging, may be all TB findings. Consulted pulm. recommends repeat imaging in a month Addendum - Attending - Attending Attestation Date/Time: 09/22/18 2423 I personally evaluated the patient and discussed the management with Dr. Myers. I agree with the History, Examination, Assessment and Plan documented above with any addition or exceptions noted below. Patient stable. Continue RIPE therapy and chest tube as long as air leak persists per Pulm. Working on transfer to inpatient correctional care due to his need for prolonged chest tube and isolation as part of his disseminated TB infection.
[2018-09-22] MEDS: Ondansetron PF 4 MG/2 ML Vial IVP PRN ×2 (08:21→21:04)
[2018-09-22] MEDS: Potassium Chloride 20 MEQ TAB PO SCH (08:21)
[2018-09-22] MEDS: Enoxaparin Sodium 40 MG/0.4 ML SYRINGE SC SCH (08:28)
[2018-09-22] MEDS: Pyrazinamide 500 MG TAB PO SCH (08:30)
[2018-09-22] MEDS: Ethambutol HCl 400 MG TAB PO SCH (08:32)
--- NOTE | 2018-09-22 08:45 | RAD ---
PORTABLE CHEST 1 VIEW: Date: 09/22/18 Time: 0504 hours HISTORY: Status post thoracotomy. FINDINGS/IMPRESSION: Left-sided chest tubes remain in place. Small left-sided pneumothorax again seen. Left subclavian simran tral venous catheter remains in place. There is mild pulmonary vascular congestion. Subcutaneous emph ysema in the left lateral chest extending to the neck is again noted. POS: [facility]
[2018-09-22] MEDS: Rifampin 300 MG CAP PO SCH ×2 (09:22→21:03)
[2018-09-22] MEDS: pyridOXINE 50 MG (B6) TAB PO SCH (09:22)
[2018-09-22] MEDS: Isoniazid 100 MG TAB PO SCH (09:22)
[2018-09-22 15:29] LABS: A. flavus Negative (Neg:<1:1); A. fumigatus Negative (Neg:<1:1); A. niger Negative (Neg:<1:1); Blastomyces AB Negative (Neg:<1:1)
--- NOTE | 2018-09-22 16:26 | PRG ---
DATE OF SERVICE: 09/22/2018 Vu Babb continues with his tuberculosis therapy. Heart rates in the 90s. Vital signs have been normal. His blood pressure this afternoon is 125/75, respiratory rate is 22. Interestingly enough, he has had no fever since he was admitted to the hospital. His cortisol level was 21, which would be appropriate. His HIV was nonreactive. He did have a reported indeterminate syphilis screen. We are awaiting transfer to the [facility] inpatient facility. Job ID: [id number] MTDD
--- NOTE | 2018-09-22 19:19 | PRG ---
DATE OF SERVICE: 09/22/2018 SUBJECTIVE: Mr. Babb is having difficulty in swallowing the antituberculous medication. He denies any headache. No respiratory symptoms. No abdominal pain. OBJECTIVE: VITAL SIGNS: T-max 98.8, BP 130/82, and pulse 100. HEENT: Ocular movements conjugate. LUNGS: With diminished breath sounds, left side. HEART: S1 and S2, regular rate. ABDOMEN: Soft and not distended. EXTREMITIES: No joint inflammatory activity. LABORATORY DATA: White cell count of 6.8, hemoglobin 9.4, and platelets 107 with 89% neutrophils. Sodium 135 and creatinine 0.59. Total bilirubin is 1.5, AST 69, ALT 21, alkaline phosphatase 75, and albumin 1.3. 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 The patient to continue on 4-drug regimen, pyridoxine for the usual duration of care waiting on a bed at the hospital in [place], [place]. Job ID: [id number]
[2018-09-22] MEDS: Pravastatin Sodium 20 MG TAB PO SCH (21:03)
[2018-09-23] MEDS ORDERED: Sterile Water 10 ML VIAL IVP PRN (05:07)
[2018-09-23] MEDS ORDERED: Activase 2 MG VIAL CATH PRN (05:07)
--- NOTE | 2018-09-23 06:43 | PDOC.FM ---
- Subjective Subjective: Pt reports doing well. Denies any pain or SOB. Pt denies any discomfort. Pt denies any acute events overnight. A&Ox2. Did not know date. Pt denies any n/v/d /c or any side effects to abx regimen at this time. - Objective MAR Reviewed: Yes Vital Signs & Weight: Vital Signs (12 hours) Temp Pulse Resp BP Pulse Ox 09/23/18 04:06 98.2 F 101 H 20 116/73 97 09/23/18 00:12 98.0 F 107 H 20 118/75 100 09/23/18 00:04 107 H 20 100 09/22/18 22:00 99 09/22/18 21:00 97.8 F 09/22/18 20:00 99 Weight Admit Weight 78.471 kg Weight 78.1 kg Most Recent Monitor Data Heart Rate from ECG 105 NIBP 124/65 NIBP BP-Mean 84 Respiration from ECG 22 SpO2 93 I&O: 09/21/18 09/22/18 09/23/18 06:59 06:59 06:59 Intake Total 5519 984 6565 Output Total 1395 1685 1625 Balance -345 -1415 -255 Result Diagrams: 09/22/18 03:50 09/22/18 03:50 Radiology Reviewed by me: Yes (Cxray yesterday stable compared to previous) Phys Exam - Physical Examination Constitutional: NAD HEENT: PERRLA Neck: no nodes, supple, full ROM Crackles and Rhonchi noted on L. side. Rales noted on the left side Cardiovascular: RRR, no significant murmur, no rub Gastrointestinal: soft, non-tender, no distention, positive bowel sounds Musculoskeletal: pulses present +1 edema in LE bilaterally Neurological: non-focal, normal sensation, moves all 4 limbs Psychiatric: normal affect Deviation from normal: A&Ox2. Did not know date Skin: no rash, normal turgor, cap refill <2 seconds Dx/Plan (1) Tuberculosis Code(s): A15.9 - RESPIRATORY TUBERCULOSIS UNSPECIFIED Status: Acute (2) Acute respiratory failure with hypoxia and hypercapnia Code(s): J96.01 - ACUTE RESPIRATORY FAILURE WITH HYPOXIA; J96.02 - ACUTE RESPIRATORY FAILURE WITH HYPERCAPNIA Status: Resolved (3) Pleural effusion Code(s): J90 - PLEURAL EFFUSION, NOT ELSEWHERE CLASSIFIED Status: Acute (4) Neoplasm /cancer Code(s): C80.1 - MALIGNANT (PRIMARY) NEOPLASM, UNSPECIFIED Status: Acute (5) Pneumonia Code(s): J18.9 - PNEUMONIA, UNSPECIFIED ORGANISM Status: Acute (6) HLD (hyperlipidemia) Code(s): E78.5 - HYPERLIPIDEMIA, UNSPECIFIED Status: Acute (7) HTN (hypertension) Code(s): I10 - ESSENTIAL (PRIMARY) HYPERTENSION Status: Acute (8) History of hepatitis C Code(s): Z86.19 - PERSONAL HISTORY OF OTHER INFECTIOUS AND PARASITIC DISEASES Status: Acute - Plan Plan: Tuberculosis Based on acid fast stain. ID has been consulted. RIPE therapy initiated. Patient in isolation. Patient is currently improving from respiratory standpoint. Pulm consulted- follow recs ID consulted- follow recs Pt will be transferred to [place]. Possibly could go on chest tube. Will continue to work on transfer as will need mcc treatment. Acute respiratory failure with hypoxia and hypercapnia (Resolved) -Transferred out of ICU yesterday. No longer requiring oxygen. Chest tube still in place. Cause of this was likely TB, suspect mets cancer as well. Will need repeat imaging later per pulm recs. Pulm Consulted- Follow recs CV surgery consulted- follow recs -Post Op day 7 of decortication and removal of pus related to TB Hematuria -Improved today. Continue to monitor HLD (hyperlipidemia) -Continue home meds HTN (hypertension) -Will contnue to hold BP medication at this time. Stable. History of hepatitis C Hx per patient and care home record. Will need to follow up with GI when recovered from his acute hospital stay. Neoplasm /cancer Suspect based on imaging, may be all TB findings. Consulted pulm. recommends repeat imaging in a month Addendum - Attending - Attending Attestation Date/Time: 09/23/18 0712 I personally evaluated the patient and discussed the management with Dr. Myers. I agree with the History, Examination, Assessment and Plan documented above with any addition or exceptions noted below. Patient stable. 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 No changes to regimen today.
[2018-09-23 07:12] LABS: Hemoglobin 9.1 g/dL (14.0-18.0); Mean Corpuscular HGB CONC 30.4 g/dL (32.0-36.0); Mean Corpuscular Hemoglobin 27.5 pg (27.0-31.0); Mean Corpuscular Volume 90.7 fL (78.0-98.0); Mean Platelet Volume 9.5 fL (7.4-10.4); Platelet Count 98 thou/uL (130-400); RBC Distribution Width 16.3 % (11.5-14.5); White Blood Cell (WBC) Count 5.7 thou/uL (4.8-10.8)
[2018-09-23 07:24] LABS: ALT (SGPT) 75 U/L (8-55); AST (SGOT) 244 U/L (5-34); Albumin 1.3 g/dL (3.4-4.8); Alkaline Phosphatase 89 U/L (40-150); Anion Gap 8 mmol/L (10-20); BUN (Urea Nitrogen) 20 mg/dL (8.4-25.7); Bilirubin, Total 1.7 mg/dL (0.2-1.2); Calc. Creatinine Clearance 140 mL/min (70-130); Calcium 7.2 mg/dL (7.8-10.44); Carbon Dioxide 25 mmol/L (23-31); Chloride 104 mmol/L (98-107); Estimated GFR-MDRD Greater than 90; Glucose 84 mg/dL (80-115); Potassium 3.4 mmol/L (3.5-5.1); Protein, Total 5.3 g/dL (5.8-8.1); Sodium 134 mmol/L (136-145)
[2018-09-23] MEDS: pyridOXINE 50 MG (B6) TAB PO SCH (09:29)
[2018-09-23] MEDS: Potassium Chloride 20 MEQ TAB PO SCH (09:30)
[2018-09-23] MEDS: Pyrazinamide 500 MG TAB PO SCH (09:30)
[2018-09-23] MEDS: Rifampin 300 MG CAP PO SCH ×2 (09:30→21:01)
[2018-09-23] MEDS: Isoniazid 100 MG TAB PO SCH (09:30)
[2018-09-23] MEDS: Enoxaparin Sodium 40 MG/0.4 ML SYRINGE SC SCH (09:31)
[2018-09-23] MEDS: Ethambutol HCl 400 MG TAB PO SCH (09:31)
--- NOTE | 2018-09-23 10:42 | RAD ---
CHEST 1 VIEW: HISTORY: Thoracotomy. COMPARISON: Radiograph of prior day. FINDINGS: There is a small left apical pneumothorax. Central venous catheter is in similar position. Small le ft hydropneumothorax is similar. No significant improvement. Two small right layering pleural effusions with some volume loss in the right lower lobe. No right-s ided pneumothorax. Subcutaneous emphysema left hemithorax is similar. IMPRESSION: 1. Similar appearance of the left hydropneumothorax with 2 indwelling thoracostomy tubes with both s iron ports on the inside of the thoracic cavity. 2. New layering right pleural effusion with volume loss right lateral costophrenic sulcus may reflec t atelectatic change. POS: [facility]
[2018-09-23 12:59] LABS: Anisocytosis SLIGHT = 6-15 cells (100X) (0-5/hpf); Band 7 % (5-11); Hypochromia SLIGHT = 6-15 cells (100X) (0-5/hpf); Lymphocytes 1 % (21-51); MDiff Complete? YES; Monocytes 1 % (0-10); Neutrophil 91 % (42-75); Platelet Morphology Comment Appears Decreased
[2018-09-23 13:14] VITALS: BMI 26.2
[2018-09-23 14:21] LABS: QuantiFERON-TB Gold Plus POSITIVE (Negative)
[2018-09-23] MEDS: Pravastatin Sodium 20 MG TAB PO SCH (21:01)
[2018-09-24 06:02] LABS: #Lymphocytes 0.5 thou/uL (1.20-3.40); #Monocytes 0.3 thou/uL (0.11-0.59); #Neutrophils 5.4 thou/uL (1.40-6.50); %Basophils 0.4 % (0.0-1.0); %Eosinophils 0.2 % (0.0-10.0); %Lymphocytes 8.4 % (21.0-51.0); %Monocytes 4.4 % (0.0-10.0); %Neutrophils 86.6 % (42.0-75.0); Hemoglobin 9.5 g/dL (14.0-18.0); Mean Corpuscular HGB CONC 31.9 g/dL (32.0-36.0); Mean Platelet Volume 9.2 fL (7.4-10.4); Platelet Count 96 thou/uL (130-400); RBC Distribution Width 16.3 % (11.5-14.5); Red Blood Cell (RBC) Count 3.28 mill/uL (4.70-6.10); White Blood Cell (WBC) Count 6.2 thou/uL (4.8-10.8)
[2018-09-24 06:32] LABS: ALT (SGPT) 114 U/L (8-55); AST (SGOT) 293 U/L (5-34); Albumin 1.3 g/dL (3.4-4.8); Alkaline Phosphatase 96 U/L (40-150); Anion Gap 9 mmol/L (10-20); BUN (Urea Nitrogen) 19 mg/dL (8.4-25.7); Bilirubin, Total 2.4 mg/dL (0.2-1.2); Calc. Creatinine Clearance 138 mL/min (70-130); Calcium 7.1 mg/dL (7.8-10.44); Carbon Dioxide 24 mmol/L (23-31); Chloride 104 mmol/L (98-107); Estimated GFR-MDRD Greater than 90; Globulin 4.3 g/dL (2.4-3.5); Glucose 89 mg/dL (80-115); Potassium 3.8 mmol/L (3.5-5.1); Protein, Total 5.6 g/dL (5.8-8.1); Sodium 133 mmol/L (136-145)
--- NOTE | 2018-09-24 06:53 | PDOC.FM ---
- Subjective Subjective: Pt doing well this morning. Pt states he wants to be left to rest. Pt denies any pain. Reports discomfort with chest tube. Denies any chest pain or SOB. Denies any side effects from medication. Pt doing well. Has gotten up and walked around. - Objective MAR Reviewed: Yes Vital Signs & Weight: Vital Signs (12 hours) Temp Pulse Resp BP Pulse Ox 09/24/18 06:48 98 16 96 09/24/18 04:16 98.4 F 106 H 16 123/75 97 09/24/18 02:12 96 09/24/18 01:00 98.6 F 106 H 16 109/71 96 09/24/18 00:13 16 09/23/18 20:30 96 09/23/18 20:00 98.2 F 100 16 104/66 97 Weight Admit Weight 78.471 kg Weight 78.1 kg Most Recent Monitor Data Heart Rate from ECG 105 NIBP 124/65 NIBP BP-Mean 84 Respiration from ECG 22 SpO2 93 I&O: 09/22/18 09/23/18 09/24/18 06:59 06:59 06:59 Intake Total 270 1370 1950 Output Total 1685 1625 950 Balance -1415 -255 1000 Result Diagrams: 09/24/18 05:53 09/24/18 05:53 Radiology Reviewed by me: Yes Radiology: 09/25 Cxray- Similar appearance of the left hydropneumothorax with 2 indwelling thoracostomy tubs w/ both side ports on the inside of the thoracic cavity. New layering R. pleural effusion w/ volume loss right lateral costophrenic sulcus may reflect ateltic change Phys Exam - Physical Examination Constitutional: NAD HEENT: PERRLA, moist MMs Neck: no nodes, no JVD, full ROM Crackles and rales and decreased breath sounds on the L. side Rales noted on the R. side Cardiovascular: RRR, no significant murmur, no rub Gastrointestinal: soft, non-tender, positive bowel sounds +1 pitting edema in lower extremities Neurological: non-focal, normal sensation, moves all 4 limbs Lymphatic: no nodes Psychiatric: normal affect, A&O x 3 Skin: no rash, normal turgor, cap refill <2 seconds Dx/Plan (1) Tuberculosis Code(s): A15.9 - RESPIRATORY TUBERCULOSIS UNSPECIFIED Status: Acute (2) Acute respiratory failure with hypoxia and hypercapnia Code(s): J96.01 - ACUTE RESPIRATORY FAILURE WITH HYPOXIA; J96.02 - ACUTE RESPIRATORY FAILURE WITH HYPERCAPNIA Status: Resolved (3) Transaminitis Code(s): R74.0 - NONSPEC ELEV OF LEVELS OF TRANSAMNS & LACTIC ACID DEHYDRGNSE Status: Acute (4) Hyperbilirubinemia Code(s): E80.6 - OTHER DISORDERS OF BILIRUBIN METABOLISM Status: Acute (5) Pleural effusion Code(s): J90 - PLEURAL EFFUSION, NOT ELSEWHERE CLASSIFIED Status: Acute (6) Neoplasm /cancer Code(s): C80.1 - MALIGNANT (PRIMARY) NEOPLASM, UNSPECIFIED Status: Acute (7) Pneumonia Code(s): J18.9 - PNEUMONIA, UNSPECIFIED ORGANISM Status: Acute (8) HLD (hyperlipidemia) Code(s): E78.5 - HYPERLIPIDEMIA, UNSPECIFIED Status: Acute (9) HTN (hypertension) Code(s): I10 - ESSENTIAL (PRIMARY) HYPERTENSION Status: Acute (10) History of hepatitis C Code(s): Z86.19 - PERSONAL HISTORY OF OTHER INFECTIOUS AND PARASITIC DISEASES Status: Acute - Plan Plan: Tuberculosis Based on acid fast stain. ID has been consulted. RIPE therapy initiated. Patient in isolation. Patient is currently improving from respiratory standpoint. Pulm consulted- follow recs ID consulted- follow recs Pt will be transferred to [place]. Possibly could go on chest tube. 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 Transaminitis -AST/ALT elevated. -Pt has history of Hep C. -hepatitis panel ordered. -Likely related to current abx regimen. Will continue to trend. Will need to follow ID recs on further adjustments Hyperbilirubinemia Bili elevated. -Plan as above. Acute respiratory failure with hypoxia and hypercapnia (Resolved) . No longer requiring oxygen. Chest tube still in place. Cause of this was likely TB, suspect mets cancer as well. Will need repeat imaging later per pulm recs. Pulm Consulted- Follow recs CV surgery consulted- follow recs -Post Op day 8 of decortication and removal of pus related to TB HLD (hyperlipidemia) -Continue home meds HTN (hypertension) -Will contnue to hold BP medication at this time. Stable. History of hepatitis C Hx per patient and [facility] record. Will need to follow up with GI when recovered from his acute hospital stay. -May need to consult with elevated liver enzymes and being on RIPE therapy. Neoplasm /cancer Suspect based on imaging, may be all TB findings. Consulted pulm. recommends repeat imaging in a month Addendum - Attending - Attending Attestation Date/Time: 09/24/18 0703 I personally evaluated the patient and discussed the management with Dr. Myers. I agree with the History, Examination, Assessment and Plan documented above with any addition or exceptions noted below. Patient stable. Continue RIPE therapy for disseminated TB and continue chest tube per pulm recs. Awaiting transfer, paperwork completed. Will space out labs while he remains here.
--- NOTE | 2018-09-24 08:39 | RAD ---
SINGLE VIEW OF THE CHEST: COMPARISON: 09/23/2018. HISTORY: Left pneumothorax status post thoracotomy. FINDINGS: A single view of the chest shows a normal-size cardiomediastinal silhouette. There is a left-sided c hest tube. Air is seen along the left chest wall. A central venous catheter is unchanged in positio n. A veil-like opacity is seen in the right thorax which likely represents a layering pleural effusi on. There still appears to be a small left-sided pneumothorax. IMPRESSION: Stable exam. POS: [facility]
[2018-09-24] MEDS: Potassium Chloride 20 MEQ TAB PO SCH (10:10)
[2018-09-24] MEDS: Enoxaparin Sodium 40 MG/0.4 ML SYRINGE SC SCH (10:11)
[2018-09-24] MEDS: Isoniazid 100 MG TAB PO SCH (10:12)
[2018-09-24] MEDS: Pyrazinamide 500 MG TAB PO SCH (10:12)
[2018-09-24] MEDS: Ethambutol HCl 400 MG TAB PO SCH (10:12)
[2018-09-24 10:13] LABS: HBCM Index 0.13 S/CO (0-0.79); HBSAg Index 0.27 S/CO (0-0.99); Hep A IgM AB Non-Reactive (NonReactive); Hep A IgM S/CO 0.23 S/CO (0-0.79); Hep B Surf Ag Non-Reactive S/CO (NonReactive); Hepatitis B Core IgM Abs Non-Reactive (NonReactive)
[2018-09-24] MEDS: pyridOXINE 50 MG (B6) TAB PO SCH (10:13)
[2018-09-24] MEDS: Rifampin 300 MG CAP PO SCH (10:13)
[2018-09-24 12:00] LABS: Hep C IgG Ab Reflex HepC Qnt (NonReactive); Hep C Index 14.89 S/CO (0-0.79)
[2018-09-24 12:19] LABS: A/G Ratio 0.3 (0.7-1.7); Albumin 1.2 g/dL (2.9-4.4); Alpha 1 0.3 g/dL (0.0-0.4); Alpha 2 0.7 g/dL (0.4-1.0); Beta 0.7 g/dL (0.7-1.3); Gamma 2.7 g/dL (0.4-1.8); Globulin, Total 4.4 g/dL (2.2-3.9); M-Spike 1.2 g/dL (Not Observed)
--- NOTE | 2018-09-24 14:42 | PRG ---
DATE OF SERVICE: 09/24/2018 SUBJECTIVE: Mr. Babb denies any headaches. No vomiting. No abdominal pain. No chest pain. OBJECTIVE: VITAL SIGNS: T-max 98.6, blood pressure 119/76, pulse 112, respirations 18, and O2 saturation 95%. GENERAL: Appears in no distress, oriented. HEENT: Scleral icterus. Pupils are equal. LUNGS: With diminished breath sounds, left side. Chest tube in place. HEART: S1 and S2. ABDOMEN: Without tenderness. No distention. LABORATORY DATA: White cell count 6.2, hemoglobin 9.5, platelets 96,000. Sodium 133, creatinine 0.59. The AST is 293, ALT is up to 114, bilirubin is up to 2.4, and albumin 1.3. 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 At this point, the ALT is up close to five times and is rising very fast. The bilirubin is up as well and we will discontinue all anti-TB medications. Await for the liver enzymes to settle down and then resume ethambutol, rifampin, and levofloxacin and observe, then add INH after that. He does have hepatitis C, which probably has viremia, that probably is contributing to the outcome. Check ultrasound of liver if not done yet. Job ID: [id number]
--- NOTE | 2018-09-24 20:36 | ULT ---
ULTRASOUND GALLBLADDER RIGHT UPPER QUADRANT 09/24/18 HISTORY: Abnormal liver function tests for hepatitis C. COMPARISON: None. FINDINGS: Moderate layering right pleural effusion. The visualized portions of the aorta and pancreas are unrem arkable. Hepatic echotexture appears normal. No mass. Portal vein is patent. Antegrade flow. There is diffuse gallbladder sludge. Sonographic Ni's sign is negative. Common bile duct measures 3 mm and is normal. Right kidney measures 10.1 x 4.6 x 5.5 cm without mass, hydronephrosis or abnormal calcifications. IMPRESSION: 1. Gallbladder sludge without cholecystitis. 2. Moderate layering right pleural effusion. POS: [facility]
[2018-09-24] MEDS: Pravastatin Sodium 20 MG TAB PO SCH (20:49)
[2018-09-25 05:03] LABS: #Basophils 0.1 thou/uL (0.0-0.2); #Lymphocytes 0.6 thou/uL (1.20-3.40); #Monocytes 0.4 thou/uL (0.11-0.59); #Neutrophils 4.9 thou/uL (1.40-6.50); %Basophils 0.9 % (0.0-1.0); %Eosinophils 0.6 % (0.0-10.0); %Lymphocytes 9.6 % (21.0-51.0); %Monocytes 6.8 % (0.0-10.0); %Neutrophils 82.2 % (42.0-75.0); Hemoglobin 9.4 g/dL (14.0-18.0); Mean Corpuscular HGB CONC 30.7 g/dL (32.0-36.0); Mean Corpuscular Hemoglobin 28.2 pg (27.0-31.0); Mean Platelet Volume 8.9 fL (7.4-10.4); Platelet Count 122 thou/uL (130-400); RBC Distribution Width 16.8 % (11.5-14.5); Red Blood Cell (RBC) Count 3.32 mill/uL (4.70-6.10)
[2018-09-25 05:26] LABS: ALT (SGPT) 143 U/L (8-55); AST (SGOT) 351 U/L (5-34); Albumin 1.3 g/dL (3.4-4.8); Alkaline Phosphatase 101 U/L (40-150); Anion Gap 7 mmol/L (10-20); BUN (Urea Nitrogen) 15 mg/dL (8.4-25.7); Bilirubin, Total 2.6 mg/dL (0.2-1.2); Calc. Creatinine Clearance 143 mL/min (70-130); Calcium 7.3 mg/dL (7.8-10.44); Carbon Dioxide 25 mmol/L (23-31); Chloride 103 mmol/L (98-107); Estimated GFR-MDRD Greater than 90; Globulin 4.4 g/dL (2.4-3.5); Glucose 89 mg/dL (80-115); Potassium 3.7 mmol/L (3.5-5.1); Protein, Total 5.7 g/dL (5.8-8.1); Sodium 131 mmol/L (136-145)
--- NOTE | 2018-09-25 07:29 | PDOC.FM ---
- Subjective Subjective: Pt reports doing well this morning. reports chest tube as feeling tight. Denies any other pain. Denies any acute concerns or complaints at this time. No acute events overnight. Denies any numbness/vomiting/diarrhea/constipation. Denies any abdominal pain. - Objective MAR Reviewed: Yes Vital Signs & Weight: Vital Signs (12 hours) Temp Pulse Resp BP Pulse Ox 09/25/18 06:51 99 16 96 09/25/18 04:00 98 F 102 H 20 123/78 97 09/25/18 02:22 94 L 09/25/18 00:34 16 09/25/18 00:18 98.2 F 105 H 20 122/81 96 09/24/18 20:00 98 F 100 18 122/72 96 Weight Admit Weight 78.471 kg Weight 78.1 kg Most Recent Monitor Data Heart Rate from ECG 105 NIBP 124/65 NIBP BP-Mean 84 Respiration from ECG 22 SpO2 93 I&O: 09/24/18 09/25/18 09/26/18 06:59 06:59 06:59 Intake Total 1950 1470 Output Total 950 1835 Balance 1000 -365 Result Diagrams: 09/25/18 04:50 09/25/18 04:50 Radiology Reviewed by me: Yes (Ab U/S: Gallbladder shows sludge w/o cholecystitis) Phys Exam - Physical Examination Constitutional: NAD HEENT: PERRLA, moist MMs Neck: no nodes, supple, full ROM Rales crackles noted on left side with chest tube suction Some mild rales in lower base on the R. Cardiovascular: RRR, no significant murmur, no rub Gastrointestinal: soft, non-tender, no distention, positive bowel sounds Musculoskeletal: pulses present +1-2 pitting edema in LE Neurological: non-focal, normal sensation, moves all 4 limbs Lymphatic: no nodes Psychiatric: normal affect Skin: no rash, normal turgor, cap refill <2 seconds Dx/Plan (1) Tuberculosis Code(s): A15.9 - RESPIRATORY TUBERCULOSIS UNSPECIFIED Status: Acute (2) Acute respiratory failure with hypoxia and hypercapnia Code(s): J96.01 - ACUTE RESPIRATORY FAILURE WITH HYPOXIA; J96.02 - ACUTE RESPIRATORY FAILURE WITH HYPERCAPNIA Status: Resolved (3) Transaminitis Code(s): R74.0 - NONSPEC ELEV OF LEVELS OF TRANSAMNS & LACTIC ACID DEHYDRGNSE Status: Acute (4) Hyperbilirubinemia Code(s): E80.6 - OTHER DISORDERS OF BILIRUBIN METABOLISM Status: Acute (5) Pleural effusion Code(s): J90 - PLEURAL EFFUSION, NOT ELSEWHERE CLASSIFIED Status: Acute (6) Neoplasm /cancer Code(s): C80.1 - MALIGNANT (PRIMARY) NEOPLASM, UNSPECIFIED Status: Acute (7) Pneumonia Code(s): J18.9 - PNEUMONIA, UNSPECIFIED ORGANISM Status: Acute (8) HLD (hyperlipidemia) Code(s): E78.5 - HYPERLIPIDEMIA, UNSPECIFIED Status: Acute (9) HTN (hypertension) Code(s): I10 - ESSENTIAL (PRIMARY) HYPERTENSION Status: Acute (10) History of hepatitis C Code(s): Z86.19 - PERSONAL HISTORY OF OTHER INFECTIOUS AND PARASITIC DISEASES Status: Acute - Plan Plan: Disseminated Tuberculosis Based on acid fast stain. Pt Post op Day 9 of decortication and removal of 2.5 L empyema related to TB. Lymph node bx shows caseating granulomas. ID has been consulted. In Isolation. -RIPE therapy has been discontinued as liver enzymes have significantly elevated. Patient is currently improving from respiratory standpoint. Pulm consulted- follow recs ID consulted- follow recs Pt will be transferred to [place]. Possibly could go on chest tube. 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 Transaminitis -AST/ALT elevated again this morning. RIPE has been d/c until it improves. -Pt has history of Hep C. Hep C postive. Will await reflex labs AB U/S shows gallbladder with sludge. May need possible General Surgery consult. Bili continues to elevated. Could be contributing to elevation in enzymes with RIPE therapy and Hep C. -ID consulted on abx- follow recs Hyperbilirubinemia Bili elevated. -Plan as above. Acute respiratory failure with hypoxia and hypercapnia (Resolved) . No longer requiring oxygen. Chest tube still in place. Cause of this was likely TB, there was concern of metastasis. Will need further imaging once TB is more resolved in 1-2 months per Pulm Pulm Consulted- Follow recs CV surgery consulted- follow recs -Post Op day 9 of decortication and removal of pus related to TB HLD (hyperlipidemia) -Continue home meds HTN (hypertension) -Will contnue to hold BP medication at this time. Stable. History of hepatitis C Hx per patient and retirement record. Will need to follow up with GI when recovered from his acute hospital stay. -Hep C positive on hepatitis panel. Reflex labs pending. Neoplasm /cancer Suspect based on imaging, may be all TB findings. Consulted pulm. recommends repeat imaging in a month
[2018-09-25] MEDS: Potassium Chloride 20 MEQ TAB PO SCH (08:47)
[2018-09-25] MEDS: Enoxaparin Sodium 40 MG/0.4 ML SYRINGE SC SCH (08:48)
[2018-09-25] MEDS: pyridOXINE 50 MG (B6) TAB PO SCH (08:48)
--- NOTE | 2018-09-25 09:32 | RAD ---
CHEST 1 VIEW: HISTORY: Chest surgery. Followup. COMPARISON: 09/24/2018. FINDINGS: Cardiac silhouette is magnified by projection. Pulmonary vasculature remains engorged with bibasilar atelectasis similar in appearance to the prior study. Left thoracostomy tubes remain in place, unch anged in position. A more residual left pneumothorax is stable. Left chest wall gas and left suprac lavicular clips are again demonstrated. IMPRESSION: Stable postoperative appearance of the chest. POS: [facility]
--- NOTE | 2018-09-25 12:45 | PRG ---
DATE OF SERVICE: 09/25/2018 SUBJECTIVE: Vu Babb still has not found a bed in the [facility]. He appears to be in no distress, lying in bed without any distress. Awaiting transfer to the [facility] there. He is started on 4-drug therapy for tuberculosis. OBJECTIVE: VITAL SIGNS: Temperature 98, pulse 101, respiratory rate 16, sats 95%, blood pressure 109/78. CHEST: Decreased breath sounds. No wheezing. CARDIAC: Normal S1, S2. No gallops. ABDOMEN: No masses. LABORATORY DATA: His liver function is elevated, AST is 351. White count 6000, H and H 9 and 31. He had a chest x-ray taken today which shows evidence of some pleural thickening on the left side. Chest tube in place. ASSESSMENT: MTB (mycobacterium tuberculosis complex), on 4-drug therapy, pleural effusion. PLAN: Continue present treatment. Eventually, transfer to [facility]. Job ID: [id number]
--- NOTE | 2018-09-25 13:58 | PRG ---
DATE OF SERVICE: Mr. Babb is sitting quietly in bed. His RICE treatment for TB has been temporarily halted because of elevations of his liver enzymes. He has no tenderness in the right upper quadrant. Although, he did demonstrate biliary sludge on right upper quadrant ultrasound, he had a negative Ni sign. Although, his bilirubin is slightly elevated, the common duct did not show any dilatation and his alkaline phosphatase is normal. It is likely that his liver enzyme abnormalities are indeed related to his RICE treatment. We will continue to follow with Dr. De Jesus. Job ID: [id number]
--- NOTE | 2018-09-25 18:29 | EKG ---
Test Reason : TACHYCARDIA Blood Pressure : / mmHG Vent. Rate : 121 BPM Atrial Rate : 121 BPM P-R Int : 100 ms QRS Dur : 072 ms QT Int : 336 ms P-R-T Axes : 048 020 119 degrees QTc Int : 477 ms Sinus tachycardia Septal infarct , age undetermined Abnormal ECG Confirmed by ADELAIDE YOU ([id number]), subeditor JULIO CESAR FUNEZ ([id number] on 09/25/2018 6:28:34 PM Referred By: MD YOU Confirmed By:ADELAIDE YOU
[2018-09-25] MEDS: Pravastatin Sodium 20 MG TAB PO SCH (20:24)
--- NOTE | 2018-09-26 07:35 | PDOC.FM ---
- Subjective Subjective: Pt resting in bed. Denies any acute events overnight. Denies any n/v/d/c. Denies any abdominal pain or RUQ pain. Denies any SOB or chest pain. Denies any fever or chills. Denies any numbness or tingling. Pt has not acute concerns or questions - Objective MAR Reviewed: Yes Vital Signs & Weight: Vital Signs (12 hours) Temp Pulse Resp BP Pulse Ox 09/26/18 07:02 101 H 14 94 L 09/26/18 04:30 98.5 F 103 H 18 113/73 96 09/26/18 00:20 12 09/25/18 23:32 98.6 F 100 18 117/78 97 09/25/18 20:00 98.4 F 103 H 16 120/75 97 Weight Admit Weight 78.471 kg Weight 78.1 kg Most Recent Monitor Data Heart Rate from ECG 105 NIBP 124/65 NIBP BP-Mean 84 Respiration from ECG 22 SpO2 93 I&O: 09/25/18 09/26/18 09/27/18 06:59 06:59 06:59 Intake Total 1470 380 Output Total 1835 1630 Balance -365 -1250 Result Diagrams: 09/25/18 04:50 09/25/18 04:50 Radiology Reviewed by me: Yes (No new imaging to review) Phys Exam - Physical Examination Constitutional: NAD HEENT: PERRLA, moist MMs Neck: no JVD, supple, full ROM Rales and crackles on the left side. Decreased breath sounds Rales on R lung Cardiovascular: RRR, no significant murmur, no rub Gastrointestinal: soft, non-tender, no distention, positive bowel sounds McMurphy's neg +2 pitting edema Neurological: non-focal, normal sensation, moves all 4 limbs Psychiatric: normal affect, A&O x 3 Skin: no rash, normal turgor, cap refill <2 seconds Dx/Plan (1) Tuberculosis Code(s): A15.9 - RESPIRATORY TUBERCULOSIS UNSPECIFIED Status: Acute (2) Acute respiratory failure with hypoxia and hypercapnia Code(s): J96.01 - ACUTE RESPIRATORY FAILURE WITH HYPOXIA; J96.02 - ACUTE RESPIRATORY FAILURE WITH HYPERCAPNIA Status: Resolved (3) Transaminitis Code(s): R74.0 - NONSPEC ELEV OF LEVELS OF TRANSAMNS & LACTIC ACID DEHYDRGNSE Status: Acute (4) Hyperbilirubinemia Code(s): E80.6 - OTHER DISORDERS OF BILIRUBIN METABOLISM Status: Acute (5) Pleural effusion Code(s): J90 - PLEURAL EFFUSION, NOT ELSEWHERE CLASSIFIED Status: Acute (6) Neoplasm /cancer Code(s): C80.1 - MALIGNANT (PRIMARY) NEOPLASM, UNSPECIFIED Status: Acute (7) Pneumonia Code(s): J18.9 - PNEUMONIA, UNSPECIFIED ORGANISM Status: Acute (8) HLD (hyperlipidemia) Code(s): E78.5 - HYPERLIPIDEMIA, UNSPECIFIED Status: Acute (9) HTN (hypertension) Code(s): I10 - ESSENTIAL (PRIMARY) HYPERTENSION Status: Acute (10) History of hepatitis C Code(s): Z86.19 - PERSONAL HISTORY OF OTHER INFECTIOUS AND PARASITIC DISEASES Status: Acute - Plan Plan: Disseminated Tuberculosis Based on acid fast stain. Pt Post op Day 10 of decortication and removal of 2.5 L empyema related to TB. Lymph node bx shows caseating granulomas. ID has been consulted. In Isolation. -RIPE therapy has been discontinued as liver enzymes have significantly elevated. Patient is currently improving from respiratory standpoint. Pulm consulted- follow recs ID consulted- follow recs. will need to follow recs and when to appropriately restart meds. Will want below 3x the upper limit of normal Pt will be transferred to [place]. Possibly could go on chest tube. Will continue to work on transfer as will need usp treatment. Transaminitis -AST/ALT elevated again this morning. RIPE has been d/c until it improves. -Pt has history of Hep C. Hep C postive. Will await reflex labs AB U/S shows gallbladder with sludge. At this time we believe RIPE w/ Hep C are the main players. If bili continues to worsen or gets pain consider General Surgery consult -ID consulted on abx- follow recs Hyperbilirubinemia Bili elevated. -Plan as above. Acute respiratory failure with hypoxia and hypercapnia (Resolved) . No longer requiring oxygen. Chest tube still in place. Cause of this was likely TB, there was concern of metastasis. Will need further imaging once TB is more resolved in 1-2 months per Pulm Pulm Consulted- Follow recs CV surgery consulted- follow recs -Post Op day 10 of decortication and removal of pus related to TB Edema -Having some LE edema likely from pt mostly being bed bound. -Will give dose of lasix at this time HLD (hyperlipidemia) -Continue home meds HTN (hypertension) -Will contnue to hold BP medication at this time. Stable. History of hepatitis C Hx per patient and longterm record. Will need to follow up with GI when recovered from his acute hospital stay. -Hep C positive on hepatitis panel. Reflex labs pending. Neoplasm /cancer Suspect based on imaging, may be all TB findings. Consulted pulm. recommends repeat imaging in a month
[2018-09-26 08:27] LABS: ALT (SGPT) 152 U/L (8-55); AST (SGOT) 302 U/L (5-34); Albumin 1.3 g/dL (3.4-4.8); Alkaline Phosphatase 112 U/L (40-150); Anion Gap 9 mmol/L (10-20); BUN (Urea Nitrogen) 13 mg/dL (8.4-25.7); Calc. Creatinine Clearance 148 mL/min (70-130); Calcium 7.4 mg/dL (7.8-10.44); Carbon Dioxide 22 mmol/L (23-31); Chloride 102 mmol/L (98-107); Estimated GFR-MDRD Greater than 90; Globulin 4.7 g/dL (2.4-3.5); Glucose 121 mg/dL (80-115); Potassium 3.9 mmol/L (3.5-5.1); Sodium 129 mmol/L (136-145)
[2018-09-26] MEDS: pyridOXINE 50 MG (B6) TAB PO SCH (08:56)
[2018-09-26] MEDS: Enoxaparin Sodium 40 MG/0.4 ML SYRINGE SC SCH (08:56)
[2018-09-26] MEDS: Potassium Chloride 20 MEQ TAB PO SCH (08:56)
[2018-09-26] MEDS: Furosemide 40 MG/4 ML VIAL SLOW IVP SCH ×2 (08:56→10:07)
--- NOTE | 2018-09-26 09:39 | RAD ---
SINGLE VIEW OF THE CHEST: COMPARISON: 09/25/2018. HISTORY: Status post thoracotomy. FINDINGS: A single view of the chest shows a normal-size cardiomediastinal silhouette. There are 2 left-sided chest tubes. Air is seen in the left chest wall. The intravenous catheter is unchanged in position. There may be a trace pneumothorax in the left costophrenic angle. Opacity is seen in the right chely g base which may represent a small layering pleural effusion. IMPRESSION: Stable exam. POS: [facility]
--- NOTE | 2018-09-26 11:28 | PRG ---
DATE OF SERVICE: 09/26/2018 Vu is clinically stable, though not in good spirits this morning. We are still holding his RICE meds for tuberculosis given his elevated LFTs. We will continue to follow with Dr. De Jesus. Job ID: [id number]
--- NOTE | 2018-09-26 14:34 | PRG ---
DATE OF SERVICE: 09/26/2018 SUBJECTIVE: He ate breakfast and lunch. No vomiting. No respiratory symptoms. A little bit of pain at the chest tube site as expected. No abdominal pain. No diarrhea. OBJECTIVE: VITAL SIGNS: T-max 98.6, blood pressure 115/74, pulse is 115, respirations 18, and O2 saturation 94%. GENERAL: Awake, alert, and oriented, in no distress. Diminished breath sounds at left side. HEART: S1 and S2, regular rate. ABDOMEN: Soft with no tenderness. EXTREMITIES: Moves extremities equally. Cognitive function is intact. LABORATORY DATA: White cell count 6.0, hemoglobin 9.4, platelets 122,000. ALT is up to 152 seems to be plateauing, AST down to 302, and bilirubin down to 2.0. 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 ALT is plateauing now and probably in the next 2 days, we will be able to start the alternate regimen and then steadily add further antituberculous medications except for pyrazinamide, which will not be restarted. Job ID: [id number]
[2018-09-26 18:07] LABS: HCV log10 6.417 (.); Hep C PCR-Quant 2610000 IU/mL (.)
[2018-09-26] MEDS: Pravastatin Sodium 20 MG TAB PO SCH (20:48)
--- NOTE | 2018-09-27 08:19 | RAD ---
SINGLE VIEW OF THE CHEST: COMPARISON: 09/26/2018. HISTORY: Status post thoracotomy with left pneumothorax. FINDINGS: A single view of the chest shows a normal-size cardiomediastinal silhouette. There are 2 left-sided chest tubes. There is pleural thickening along the lateral left thorax. There is a questionable lef t costophrenic angle pneumothorax. Air is seen along the left chest wall. No change has occurred co mpared to the prior exam. The central venous catheter is unchanged in position. IMPRESSION: Stable exam. POS: [facility]
[2018-09-27] MEDS: pyridOXINE 50 MG (B6) TAB PO SCH (09:15)
[2018-09-27] MEDS: Potassium Chloride 20 MEQ TAB PO SCH (09:15)
[2018-09-27] MEDS: Enoxaparin Sodium 40 MG/0.4 ML SYRINGE SC SCH (09:15)
--- NOTE | 2018-09-27 11:19 | PDOC.FM ---
- Subjective Subjective: 63 yo gentleman (incarcerated) who presented initially with shortness of breath admitted for acute hypoxic hypercapnic respiratory failure, found to have disseminated tb. O/N: No acute events overnight. Afebrile. Denies shortness of breath this morning and denies other complaints. - Objective Vital Signs & Weight: Vital Signs (12 hours) Temp Pulse Resp BP Pulse Ox 09/27/18 08:15 98.5 F 115 H 18 102/65 98 09/27/18 08:00 98 09/27/18 06:55 97 16 96 09/27/18 04:00 98.7 F 95 18 114/67 96 09/27/18 02:03 95 09/27/18 00:31 103 H 16 95 09/27/18 00:00 98.7 F 110 H 16 106/67 95 Weight Admit Weight 78.471 kg Weight 78.1 kg Most Recent Monitor Data Heart Rate from ECG 105 NIBP 124/65 NIBP BP-Mean 84 Respiration from ECG 22 SpO2 93 I&O: 09/26/18 09/27/18 09/28/18 06:59 06:59 06:59 Intake Total 380 270 Output Total 1630 1125 Balance -1250 -855 Result Diagrams: 09/25/18 04:50 09/27/18 12:17 Phys Exam - Physical Examination Constitutional: NAD cachectic HEENT: PERRLA dry mm wheezing bilaterally; no increased work of breath Cardiovascular: RRR, no significant murmur Gastrointestinal: soft, non-tender, no distention Musculoskeletal: no edema, pulses present Psychiatric: normal affect, A&O x 3 Skin: no rash Dx/Plan (1) Disseminated tuberculosis Code(s): A19.9 - MILIARY TUBERCULOSIS, UNSPECIFIED Status: Chronic (2) Hyponatremia Code(s): E87.1 - HYPO-OSMOLALITY AND HYPONATREMIA Status: Acute (3) Hepatitis C Code(s): B19.20 - UNSPECIFIED VIRAL HEPATITIS C WITHOUT HEPATIC COMA Status: Acute Qualifiers: Viral hepatitis chronicity: acute (4) HLD (hyperlipidemia) Code(s): E78.5 - HYPERLIPIDEMIA, UNSPECIFIED Status: Chronic (5) HTN (hypertension) Code(s): I10 - ESSENTIAL (PRIMARY) HYPERTENSION Status: Chronic (6) Hyperbilirubinemia Code(s): E80.6 - OTHER DISORDERS OF BILIRUBIN METABOLISM Status: Acute (7) Neoplasm /cancer Code(s): C80.1 - MALIGNANT (PRIMARY) NEOPLASM, UNSPECIFIED Status: Suspected (8) Transaminitis Code(s): R74.0 - NONSPEC ELEV OF LEVELS OF TRANSAMNS & LACTIC ACID DEHYDRGNSE Status: Acute (9) Acute respiratory failure with hypoxia and hypercapnia Code(s): J96.01 - ACUTE RESPIRATORY FAILURE WITH HYPOXIA; J96.02 - ACUTE RESPIRATORY FAILURE WITH HYPERCAPNIA Status: Resolved - Plan Plan: Disseminated Tuberculosis Based on acid fast stain. Pt Post op Day 11 of decortication and removal of 2.5 L empyema related to TB. Lymph node bx shows caseating granulomas. ID has been consulted. Appreciate recs. RIPE therapy has been discontinued as liver enzymes are elevated and will resume once liver enzymes decrease, aproximately 2-3 days Pt to be transferred possibly to [facility] at some point Hyponatremia- Unclear etiology ordered urine sodium, urine osm Transaminitis AST/ALT elevated this morning. 302/102 Pt has history of Hep C. AB U/S shows gallbladder with sludge. ID consulted on abx- follow recs Hyperbilirubinemia Bili elevated. -Plan as above. Acute respiratory failure with hypoxia and hypercapnia (Resolved) Chest tube still in place. No respiratory distress, no hypoxia currently Cause of this was likely TB, there was concern of metastasis. Will need further imaging once TB is more resolved in 1-2 months per Pulm Pulm Consulted, appreciate recs CV surgery consulted, appreciate recs Post Op day 11 of decortication HLD Continue home meds HTN Will contnue to hold BP medication at this time. Stable. Hepatitis C, untreated Hep C positive on hepatitis panel. Reflex labs pending. Neoplasm /cancer Suspect based on imaging, may be solely TB findings. Pulm consulted, recommends repeat imaging in a month Dispo: potential transfer to [facility] DVT: lovenox Diet: heart healthy CODE STATUS: full Addendum - Attending - Attending Attestation Date/Time: 09/27/18 9665 I personally evaluated the patient and discussed the management with Dr. Brothers. I agree with and repeated the History, Examination, Assessment and Plan documented above with any addition or exceptions noted below. +air leak. Improving LFTs.
[2018-09-27 12:58] LABS: ALT (SGPT) 103 U/L (8-55); AST (SGOT) 126 U/L (5-34); Albumin 1.4 g/dL (3.4-4.8); Alkaline Phosphatase 98 U/L (40-150); Anion Gap 8 mmol/L (10-20); BUN (Urea Nitrogen) 9 mg/dL (8.4-25.7); Bilirubin, Total 1.2 mg/dL (0.2-1.2); Calc. Creatinine Clearance 133 mL/min (70-130); Calcium 7.3 mg/dL (7.8-10.44); Carbon Dioxide 24 mmol/L (23-31); Chloride 103 mmol/L (98-107); Estimated GFR-MDRD Greater than 90; Globulin 4.5 g/dL (2.4-3.5); Glucose 154 mg/dL (80-115); Potassium 3.9 mmol/L (3.5-5.1); Protein, Total 5.9 g/dL (5.8-8.1); Sodium 131 mmol/L (136-145)
--- NOTE | 2018-09-27 16:44 | PRG ---
DATE OF SERVICE: 09/27/2018 SUBJECTIVE: Mr. Babb is feeling well. No nausea. No vomiting. No chest pain except for the chest tube area. No abdominal pain. No diarrhea. OBJECTIVE: VITAL SIGNS: Vital signs are normal except for tachycardia. GENERAL: Awake, alert, oriented. LUNGS: With altered breath sounds on the left side from the chest tube and the areas of atelectasis. HEART: S1 and S2, regular rate. ABDOMEN: Soft, not distended or tender. LABORATORY DATA: White cell count is 6.0, hemoglobin 9.4, platelets 122. Sodium 131, creatinine 0.6. ALT is down to 103, which is less than twice the upper limit of normal. ASSESSMENT AND DISCUSSION: Mycobacterium tuberculosis, lymphadenitis, and pneumonia with empyema, status post decortication and hepatotoxicity which is improving. ALT less than twice the upper limit of normal and we will go ahead and start ethambutol, rifampin, and levofloxacin. Monitor for liver toxicity in a week. Add INH again if enzymes remain within normal limits or mild elevation. We continue monitoring closely. If INH, rifampin, ethambutol can be continued, then this could be the regimen for 9 months, plus/minus levofloxacin. If the patient develops recrudescence of transaminase elevation after INH is added, then will have to be treated with levofloxacin, rifampin, and ethambutol for at least 12 months depending on susceptibility results. Evidently susceptibility results may alter this determination. Job ID: [id number]
[2018-09-27 19:54] LABS: Osmolality, Urine 560 mOsm/kg (300-900)
[2018-09-27 20:16] LABS: Sodium, Urine 173 mmol/L (Not Available)
[2018-09-27] MEDS: Ethambutol HCl 400 MG TAB PO SCH (20:36)
[2018-09-27] MEDS: Rifampin 300 MG CAP PO SCH (20:36)
[2018-09-27] MEDS: Pravastatin Sodium 20 MG TAB PO SCH (20:36)
[2018-09-28 06:15] LABS: Hep B Surface AG-Rflx Sendout Negative (Negative); Hepatitis B Core IgM AB Negative (Negative); Hepatitis B Core Total Positive (Negative); Hepatitis B Surface AB-Sendout Non Reactive (.)
[2018-09-28] MEDS ORDERED: Furosemide 40 MG/4 ML VIAL SLOW IVP SCH (07:15)
[2018-09-28 08:05] LABS: ALT (SGPT) 75 U/L (8-55); AST (SGOT) 67 U/L (5-34); Albumin 1.6 g/dL (3.4-4.8); Alkaline Phosphatase 99 U/L (40-150); Anion Gap 6 mmol/L (10-20); BUN (Urea Nitrogen) 8 mg/dL (8.4-25.7); Bilirubin, Total 1.1 mg/dL (0.2-1.2); Calc. Creatinine Clearance 131 mL/min (70-130); Calcium 7.7 mg/dL (7.8-10.44); Carbon Dioxide 24 mmol/L (23-31); Chloride 104 mmol/L (98-107); Estimated GFR-MDRD Greater than 90; Globulin 4.5 g/dL (2.4-3.5); Glucose 117 mg/dL (80-115); Potassium 3.6 mmol/L (3.5-5.1); Protein, Total 6.1 g/dL (5.8-8.1); Sodium 130 mmol/L (136-145)
[2018-09-28] MEDS: Enoxaparin Sodium 40 MG/0.4 ML SYRINGE SC SCH (09:02)
[2018-09-28] MEDS: Rifampin 300 MG CAP PO SCH ×2 (09:03→20:37)
[2018-09-28] MEDS: pyridOXINE 50 MG (B6) TAB PO SCH (09:03)
[2018-09-28] MEDS: Potassium Chloride 20 MEQ TAB PO SCH (09:03)
[2018-09-28] MEDS: Ethambutol HCl 400 MG TAB PO SCH ×2 (09:04→20:37)
--- NOTE | 2018-09-28 09:43 | RAD ---
SINGLE VIEW OF THE CHEST: Comparison: 09-27-18 History: Thoracotomy. FINDINGS: Single view of the chest shows a normal sized cardiomediastinal silhouette. Two left sided chest tube s are again seen. There is a tiny left costophrenic angle pneumothorax. There is air in the left ches t wall. The central venous catheter is unchanged in position. IMPRESSION: Stable exam. POS: C
--- NOTE | 2018-09-28 13:21 | PDOC.FM ---
- Subjective Subjective: No complaints this morning. Resting comfortably in bed. - Objective Vital Signs & Weight: Vital Signs (12 hours) Temp Pulse Resp BP Pulse Ox 09/28/18 11:16 97.9 F 111 H 18 113/74 98 09/28/18 08:15 117 H 20 96 09/28/18 07:26 98.7 F 108 H 20 119/78 95 09/28/18 04:55 98 F 110 H 16 126/77 98 Weight Admit Weight 78.471 kg Weight 78.1 kg Most Recent Monitor Data Heart Rate from ECG 105 NIBP 124/65 NIBP BP-Mean 84 Respiration from ECG 22 SpO2 93 I&O: 09/27/18 09/28/18 09/29/18 06:59 06:59 06:59 Intake Total 270 1750 Output Total 1125 2300 Balance -855 -550 Result Diagrams: 09/25/18 04:50 09/28/18 07:35 Phys Exam - Physical Examination Constitutional: NAD HEENT: PERRLA, moist MMs Respiratory: clear to auscultation bilateral Cardiovascular: RRR, no significant murmur Gastrointestinal: soft, non-tender, no distention 1+ pitting edema bilaterally lower extremities Neurological: non-focal, normal sensation Psychiatric: normal affect, A&O x 3 Skin: no rash, normal turgor Dx/Plan (1) Disseminated tuberculosis Code(s): A19.9 - MILIARY TUBERCULOSIS, UNSPECIFIED Status: Chronic (2) Hyponatremia Code(s): E87.1 - HYPO-OSMOLALITY AND HYPONATREMIA Status: Acute (3) Hepatitis C Code(s): B19.20 - UNSPECIFIED VIRAL HEPATITIS C WITHOUT HEPATIC COMA Status: Acute Qualifiers: Viral hepatitis chronicity: acute (4) HLD (hyperlipidemia) Code(s): E78.5 - HYPERLIPIDEMIA, UNSPECIFIED Status: Chronic (5) HTN (hypertension) Code(s): I10 - ESSENTIAL (PRIMARY) HYPERTENSION Status: Chronic (6) Hyperbilirubinemia Code(s): E80.6 - OTHER DISORDERS OF BILIRUBIN METABOLISM Status: Acute (7) Neoplasm /cancer Code(s): C80.1 - MALIGNANT (PRIMARY) NEOPLASM, UNSPECIFIED Status: Suspected (8) Transaminitis Code(s): R74.0 - NONSPEC ELEV OF LEVELS OF TRANSAMNS & LACTIC ACID DEHYDRGNSE Status: Acute (9) Acute respiratory failure with hypoxia and hypercapnia Code(s): J96.01 - ACUTE RESPIRATORY FAILURE WITH HYPOXIA; J96.02 - ACUTE RESPIRATORY FAILURE WITH HYPERCAPNIA Status: Resolved - Plan Plan: Disseminated Tuberculosis Based on acid fast stain. Pt Post op Day 12 of decortication and removal of 2.5 L empyema related to TB. Lymph node bx shows caseating granulomas. ID has been consulted. Appreciate recs. Liver enzymes downtrending, bili 1.2; Dr. De Jesus restarted rifampin, ethambutol, and levaquin. Hyponatremia- serum osm: 300, glucose ~154 will also consider hypoosmotic causes such as SIADH, hypothyroidism, AI (random cortisol was normal), pt is not on a thiazide will also order a lipid panel Transaminitis AST/ALT improved Pt has history of Hep C. AB U/S shows gallbladder with sludge. ID consulted on abx- follow recs Hyperbilirubinemia Bili improved -Plan as above. Acute respiratory failure with hypoxia and hypercapnia (Resolved) Chest tube still in place. No respiratory distress, no hypoxia currently Pulm Consulted, appreciate recs CV surgery consulted, appreciate recs Post Op day 12 of decortication HLD Continue home meds HTN Will contnue to hold BP medication at this time. Stable. Hepatitis C, untreated Hep C positive on hepatitis panel. Reflex labs pending. Concern for Neoplasm /cancer may be solely TB findings. Pulm consulted, recommends repeat imaging in a month Dispo: potential transfer to [facility] DVT: lovenox Diet: heart healthy CODE STATUS: full Addendum - Attending - Attending Attestation Date/Time: 09/28/18 7304 I personally evaluated the patient and discussed the management with Dr. Brothers. I agree with the History, Examination, Assessment and Plan documented above with any addition or exceptions noted below. Pt without f/c/cp/sob/n/v. No abd pain.
[2018-09-28] MEDS: Pravastatin Sodium 20 MG TAB PO SCH (20:38)
--- NOTE | 2018-09-29 05:27 | PRG ---
DATE OF SERVICE: 09/28/2018 The lab is continued to be followed. He has also been followed by Infectious Disease and the hospitalist. His antituberculous medications minus the INH have been restarted. He is stable for transfer to when the bed becomes available I would think. He still has chest tube, so he cannot go to the [facility]. Job ID: [id number]
[2018-09-29 05:48] LABS: ALT (SGPT) 53 U/L (8-55); AST (SGOT) 39 U/L (5-34); Albumin 1.6 g/dL (3.4-4.8); Alkaline Phosphatase 98 U/L (40-150); Anion Gap 8 mmol/L (10-20); BUN (Urea Nitrogen) 10 mg/dL (8.4-25.7); Calc. Creatinine Clearance 129 mL/min (70-130); Calcium 7.7 mg/dL (7.8-10.44); Carbon Dioxide 27 mmol/L (23-31); Cardiac Risk 9.2 (Less than 4.5); Chloride 102 mmol/L (98-107); Cholesterol 110 mg/dl (< 200 Desired); Estimated GFR-MDRD Greater than 90; Glucose 122 mg/dL (80-115); HDL Cholesterol 12 mg/dL (>60 Neg Risk); LDL Cholesterol, Calculated 79 mg/dL; Potassium 3.4 mmol/L (3.5-5.1); Protein, Total 5.6 g/dL (5.8-8.1); Sodium 134 mmol/L (136-145); Triglycerides 94 mg/dL (Less than 150)
[2018-09-29 08:09] LABS: #Basophils 0.1 thou/uL (0.0-0.2); #Eosinphils 0.1 thou/uL (0.0-0.7); #Lymphocytes 0.8 thou/uL (1.20-3.40); #Monocytes 0.6 thou/uL (0.11-0.59); #Neutrophils 3.3 thou/uL (1.40-6.50); %Basophils 1.4 % (0.0-1.0); %Eosinophils 2.5 % (0.0-10.0); %Lymphocytes 16.2 % (21.0-51.0); %Monocytes 11.8 % (0.0-10.0); %Neutrophils 68.2 % (42.0-75.0); Hemoglobin 8.8 g/dL (14.0-18.0); Mean Corpuscular HGB CONC 29.7 g/dL (32.0-36.0); Mean Corpuscular Hemoglobin 28.1 pg (27.0-31.0); Mean Corpuscular Volume 94.7 fL (78.0-98.0); Mean Platelet Volume 8.4 fL (7.4-10.4); Platelet Count 207 thou/uL (130-400); RBC Distribution Width 18.7 % (11.5-14.5); Red Blood Cell (RBC) Count 3.13 mill/uL (4.70-6.10); White Blood Cell (WBC) Count 4.9 thou/uL (4.8-10.8)
--- NOTE | 2018-09-29 08:09 | PDOC.FM ---
- Subjective Subjective: No acute events overnight. Sitting up in bed. Denies complaints. Ate breakfast. - Objective MAR Reviewed: Yes Vital Signs & Weight: Vital Signs (12 hours) Temp Pulse Resp BP Pulse Ox 09/29/18 06:28 105 H 16 98 09/29/18 04:29 98.4 F 112 H 18 113/67 97 09/29/18 02:39 97 09/29/18 00:44 98.4 F 115 H 18 106/71 98 09/29/18 00:35 16 Weight Admit Weight 78.471 kg Weight 78.1 kg Most Recent Monitor Data Heart Rate from ECG 105 NIBP 124/65 NIBP BP-Mean 84 Respiration from ECG 22 SpO2 93 I&O: 09/28/18 09/29/18 09/30/18 06:59 06:59 06:59 Intake Total 1750 1690 Output Total 2300 3650 Balance -550 -1960 Result Diagrams: 09/29/18 07:40 09/29/18 05:15 Phys Exam - Physical Examination Constitutional: NAD HEENT: PERRLA, moist MMs Respiratory: no wheezing, no rales, clear to auscultation bilateral Cardiovascular: no significant murmur mild tachycardia Gastrointestinal: soft, non-tender 1+ edema bilateral lower extremities Neurological: non-focal Psychiatric: normal affect, A&O x 3 Skin: no rash Dx/Plan (1) Disseminated tuberculosis Code(s): A19.9 - MILIARY TUBERCULOSIS, UNSPECIFIED Status: Chronic (2) Hyponatremia Code(s): E87.1 - HYPO-OSMOLALITY AND HYPONATREMIA Status: Acute (3) Hepatitis C Code(s): B19.20 - UNSPECIFIED VIRAL HEPATITIS C WITHOUT HEPATIC COMA Status: Acute Qualifiers: Viral hepatitis chronicity: acute (4) HLD (hyperlipidemia) Code(s): E78.5 - HYPERLIPIDEMIA, UNSPECIFIED Status: Chronic (5) HTN (hypertension) Code(s): I10 - ESSENTIAL (PRIMARY) HYPERTENSION Status: Chronic (6) Hyperbilirubinemia Code(s): E80.6 - OTHER DISORDERS OF BILIRUBIN METABOLISM Status: Acute (7) Neoplasm /cancer Code(s): C80.1 - MALIGNANT (PRIMARY) NEOPLASM, UNSPECIFIED Status: Suspected (8) Transaminitis Code(s): R74.0 - NONSPEC ELEV OF LEVELS OF TRANSAMNS & LACTIC ACID DEHYDRGNSE Status: Acute (9) Acute respiratory failure with hypoxia and hypercapnia Code(s): J96.01 - ACUTE RESPIRATORY FAILURE WITH HYPOXIA; J96.02 - ACUTE RESPIRATORY FAILURE WITH HYPERCAPNIA Status: Resolved - Plan Plan: Disseminated Tuberculosis Based on acid fast stain. Pt Post op Day 13 of decortication and removal of 2.5 L empyema related to TB. Lymph node bx shows caseating granulomas. ID has been consulted. Appreciate recs. Continue rifampin, ethambutol, and levaquin. Pending bed availability at [facility] in [place]. Pt still has chest tube in place. Hyponatremia- serum osm: 300, glucose ~154 will also consider hypoosmotic causes such as SIADH, hypothyroidism AI (random cortisol was normal), pt is not on a thiazide lipid panel wnl Transaminitis AST/ALT improved Pt has history of Hep C. AB U/S shows gallbladder with sludge. ID consulted on abx- follow recs Hyperbilirubinemia Bili improved -Plan as above. Acute respiratory failure with hypoxia and hypercapnia (Resolved) Chest tube still in place. No respiratory distress, no hypoxia currently Pulm Consulted, appreciate recs CV surgery consulted, appreciate recs Post Op day 12 of decortication HLD Continue home meds HTN Will contnue to hold BP medication at this time. Stable. Hepatitis C, untreated Hep C positive on hepatitis panel. Reflex labs pending. Concern for Neoplasm /cancer may be solely TB findings. Pulm consulted, recommends repeat imaging in a month Dispo: potential transfer to [place], pending bed availability DVT: lovenox Diet: heart healthy CODE STATUS: full Addendum - Attending - Attending Attestation Date/Time: 09/29/18 1010 I personally evaluated the patient and discussed the management with Dr. Brothers. I agree with and repeated the History, Examination, Assessment and Plan documented above with any addition or exceptions noted below. No f/c/n/v/cp/ sob. Still with leak. Restarted meds. Op day 09/16.
[2018-09-29] MEDS ORDERED: Furosemide 40 MG/4 ML VIAL SLOW IVP SCH (08:30)
--- NOTE | 2018-09-29 08:42 | RAD ---
PORTABLE AP CHEST X-RAY: 09/29/2018 HISTORY: Post thoracotomy. Follow-up evaluation. COMPARISON: 09/28/2018 FINDINGS: Left-sided thoracostomy tubes remain in place and unchanged in position. Increased pleural density a long the left lateral chest is again seen, which could be related to pleural thickening. A small pne umothorax is again seen at the left lateral chest and at the left lung base, also noted on the prior exam but more conspicuous on the current study. A subclavian central venous catheter remains in plac e. Surgical clips overly the left lung apex. There is subcutaneous emphysema in the left supraclavi cular region and along the left lateral chest. There is patchy density at the left lung base, which could be related to pleural thickening at the le ft lung base. The most proximal sidehole of the lower left-sided thoracostomy tube is more periphera lly located. The cardiac silhouette and pulmonary vasculature are within normal limits. No other interval change. IMPRESSION: 1. Two left-sided thoracostomy tubes remain in place. There is stable pleural thickening along the left lateral chest with residual pneumothorax again seen along the lateral mid and lower chest and at the left lateral costophrenic angle. 2. Subcutaneous emphysema. 3. Pleural thickening, left chest. POS: [facility]
[2018-09-29] MEDS: Rifampin 300 MG CAP PO SCH ×2 (09:36→21:46)
[2018-09-29] MEDS: Ethambutol HCl 400 MG TAB PO SCH ×2 (09:37→21:44)
[2018-09-29] MEDS: Enoxaparin Sodium 40 MG/0.4 ML SYRINGE SC SCH (09:37)
[2018-09-29] MEDS: Potassium Chloride 20 MEQ TAB PO SCH (09:38)
[2018-09-29] MEDS: pyridOXINE 50 MG (B6) TAB PO SCH (09:38)
[2018-09-29 09:56] LABS: Hypochromia SLIGHT = 6-15 cells (100X) (0-5/hpf); MDiff Complete? YES; Platelet Morphology Comment Appears Adequate; Polychromasia MODERATE = 3-4 cells (100X) (0-2/hpf)
[2018-09-29] MEDS ORDERED: Potassium Chloride 20 MEQ TAB PO SCH (12:00)
[2018-09-29] MEDS: Pravastatin Sodium 20 MG TAB PO SCH (21:45)
[2018-09-30 06:26] LABS: ALT (SGPT) 37 U/L (8-55); AST (SGOT) 29 U/L (5-34); Albumin 1.7 g/dL (3.4-4.8); Alkaline Phosphatase 82 U/L (40-150); Anion Gap 10 mmol/L (10-20); BUN (Urea Nitrogen) 11 mg/dL (8.4-25.7); Calc. Creatinine Clearance 131 mL/min (70-130); Calcium 7.8 mg/dL (7.8-10.44); Carbon Dioxide 26 mmol/L (23-31); Chloride 104 mmol/L (98-107); Estimated GFR-MDRD Greater than 90; Globulin 4.2 g/dL (2.4-3.5); Glucose 97 mg/dL (80-115); Potassium 3.7 mmol/L (3.5-5.1); Protein, Total 5.9 g/dL (5.8-8.1); Sodium 136 mmol/L (136-145)
--- NOTE | 2018-09-30 07:00 | PDOC.FM ---
- Subjective Subjective: No complaints this morning. Feels better. Slept well. - Objective MAR Reviewed: Yes Vital Signs & Weight: Vital Signs (12 hours) Temp Pulse Resp BP Pulse Ox 09/30/18 04:18 98.2 F 114 H 18 119/72 99 09/30/18 00:33 89 14 98 09/30/18 00:10 99.0 F 111 H 18 115/70 98 09/29/18 20:37 98.1 F 113 H 18 98/61 100 09/29/18 20:35 95 09/29/18 19:18 117 H 16 97 Weight Admit Weight 78.471 kg Weight 78.1 kg Most Recent Monitor Data Heart Rate from ECG 105 NIBP 124/65 NIBP BP-Mean 84 Respiration from ECG 22 SpO2 93 I&O: 09/29/18 09/30/18 10/01/18 06:59 06:59 06:59 Intake Total 1690 Output Total 3650 2350 Balance -1960 -2349 Result Diagrams: 09/29/18 07:40 09/30/18 05:40 Phys Exam - Physical Examination Constitutional: NAD cachetic coarse breath sounds Cardiovascular: RRR, no significant murmur Gastrointestinal: soft, non-tender, no distention +1 pitting edema b/l lower extremites Neurological: non-focal, moves all 4 limbs Psychiatric: normal affect, A&O x 3 Dx/Plan (1) Disseminated tuberculosis Code(s): A19.9 - MILIARY TUBERCULOSIS, UNSPECIFIED Status: Chronic (2) Hyponatremia Code(s): E87.1 - HYPO-OSMOLALITY AND HYPONATREMIA Status: Acute (3) Hepatitis C Code(s): B19.20 - UNSPECIFIED VIRAL HEPATITIS C WITHOUT HEPATIC COMA Status: Acute Qualifiers: Viral hepatitis chronicity: acute (4) HLD (hyperlipidemia) Code(s): E78.5 - HYPERLIPIDEMIA, UNSPECIFIED Status: Chronic (5) HTN (hypertension) Code(s): I10 - ESSENTIAL (PRIMARY) HYPERTENSION Status: Chronic (6) Hyperbilirubinemia Code(s): E80.6 - OTHER DISORDERS OF BILIRUBIN METABOLISM Status: Acute (7) Neoplasm /cancer Code(s): C80.1 - MALIGNANT (PRIMARY) NEOPLASM, UNSPECIFIED Status: Suspected (8) Transaminitis Code(s): R74.0 - NONSPEC ELEV OF LEVELS OF TRANSAMNS & LACTIC ACID DEHYDRGNSE Status: Acute (9) Acute respiratory failure with hypoxia and hypercapnia Code(s): J96.01 - ACUTE RESPIRATORY FAILURE WITH HYPOXIA; J96.02 - ACUTE RESPIRATORY FAILURE WITH HYPERCAPNIA Status: Resolved - Plan Plan: Plan: Disseminated Tuberculosis Based on acid fast stain. Pt Post op Day 13 of decortication and removal of 2.5 L empyema related to TB. Lymph node bx shows caseating granulomas. ID has been consulted. Appreciate recs. Continue rifampin, ethambutol, pyridoxine and levaquin. Pending bed availability at [facility] in [place]. Pt still has chest tube in place. Ok to be transferred with chest tube Transaminitis AST/ALT improved Pt has history of Hep C. AB U/S shows gallbladder with sludge. ID consulted on abx- follow recs Hyperbilirubinemia Bili improved -Plan as above. Acute respiratory failure with hypoxia and hypercapnia (Resolved) Chest tube still in place. No respiratory distress, no hypoxia currently Pulm Consulted, appreciate recs CV surgery consulted, appreciate recs Post Op day 13 of decortication Ok to be transferred with chest tube HLD Continue home meds HTN Will contnue to hold BP medication at this time. Stable. Hepatitis C, untreated Hep C positive on hepatitis panel. Concern for Neoplasm /cancer may be solely TB findings. Pulm consulted, recommends repeat imaging in a month Hyponatremia- -resolved serum osm: 300, glucose ~154 will also consider hypoosmotic causes such as SIADH, hypothyroidism AI (random cortisol was normal), pt is not on a thiazide lipid panel wnl Dispo: potential transfer to [place], pending bed availability DVT: lovenox Diet: heart healthy CODE STATUS: full Addendum - Attending - Attending Attestation Date/Time: 09/30/18 3898 I personally evaluated the patient and discussed the management with Dr. Brothers. I agree with and repeated the History, Examination, Assessment and Plan documented above with any addition or exceptions noted below. Still with leak. Awaiting bed.
[2018-09-30] MEDS ORDERED: Furosemide 40 MG/4 ML VIAL SLOW IVP SCH (07:30)
[2018-09-30] MEDS: Enoxaparin Sodium 40 MG/0.4 ML SYRINGE SC SCH (08:29)
[2018-09-30] MEDS: pyridOXINE 50 MG (B6) TAB PO SCH (08:29)
[2018-09-30] MEDS: Potassium Chloride 20 MEQ TAB PO SCH (08:29)
[2018-09-30] MEDS: Ethambutol HCl 400 MG TAB PO SCH ×2 (08:30→19:49)
--- NOTE | 2018-09-30 08:39 | RAD ---
SINGLE VIEW OF THE CHEST: COMPARISON: 09/29/2018. HISTORY: Status post thoracotomy. FINDINGS: A single view of the chest shows a normal-size cardiomediastinal silhouette. There are 2 left chest tubes with a small left costophrenic angle pneumothorax. Air is seen in the left chest wall. The ce ntral venous catheter is unchanged in position. IMPRESSION: Status post thoracotomy with small left costophrenic angle pneumothorax. POS: [facility]
[2018-09-30] MEDS: Rifampin 300 MG CAP PO SCH ×2 (10:41→19:49)
--- NOTE | 2018-09-30 11:11 | PRG ---
DATE OF SERVICE: 09/30/2018 SUBJECTIVE: Vu Babb has no new complaints. His appetite apparently is improving. He denies nausea. He denies abdominal pain. OBJECTIVE: VITAL SIGNS: He is afebrile, heart rate is 113-117, respiratory rate is 15, oximetry is 94% on room air and blood pressure is 112/71. LUNGS: Remarkable for equal breath sounds. HEART: Regular rhythm. ABDOMEN: Soft. He had a 350 mL chest tube drainage in last 24 hours, 400 mL yesterday. IMPRESSION: Disseminated tuberculosis with INH intolerance. His drug short of INH has been restarted. Tolerating this well. His appetite has improved considerably. His acid-fast bacilli have been confirmed by PCR to be Mycobacterium tuberculosis. We will continue with chest tube suction. He needs to increase his out of bedtime to three times a day with meals or he will never walk again. I have explained this to him. We will continue to follow intermittently. Job ID: [id number]
--- NOTE | 2018-09-30 17:58 | PRG ---
DATE OF SERVICE: 09/30/2018 SUBJECTIVE: Mr. Babb has no vomiting. No respiratory symptoms. No abdominal pain. OBJECTIVE: VITAL SIGNS: Essentially normal. He is not as tachycardic as before. LUNGS: Clear. HEART: S1, S2. Regular rate. ABDOMEN: Soft. LABORATORY DATA: White cell count is at 4.9, hemoglobin 8.8, and platelets 207. Chemistry with a creatinine of 0.62. Liver profile completely normal at this time. ASSESSMENT AND DISCUSSION: Mycobacterium tuberculosis, lymphadenitis, and pneumonia with empyema, status post decortication; eventual development of hepatotoxicity, which improved after discontinuation of antituberculous medications. The patient has been resumed on Levaquin, ethambutol, and rifampin, and today, we will add oral INH. Careful followup will have to be continued to see if he tolerates these. If he does, then I would probably leave him on those 4 drugs until the end of therapy or treating for 2 months with these and then switch him to INH and rifampin for another 4 to 6 months. Job ID: [id number]
[2018-09-30] MEDS: Pravastatin Sodium 20 MG TAB PO SCH (19:49)
[2018-09-30 20:30] VITALS: BP 111/73; TEMP 98.1
--- NOTE | 2018-10-01 05:58 | DIS ---
DATE OF ADMISSION: 09/15/2018 DATE OF DISCHARGE: 09/30/2018 CONSULTS: 1. Pulmonology, Dr. Júnior Luke. 2. Infectious Disease, Dr. Johnathan De Jesus. 3. CV Surgery, Dr. Braulio Brewer. PROCEDURES: 1. Chest and thorax CTA on 09/15/2018, massive left pleural effusion, partially loculated, complete collapse of the left lower lobe, partial atelectatic changes in left upper lobe and there is probably some type of pleural based mass on the left upper lobe. A spiculated mass area was in the right upper lobe and other ill-defined areas, nodularities, some of these changes may represent pneumonitis type change with suspecting neoplasm, also features very suspicious of lymphangitic spread of tumor within the right lung. Pathologic appearing adenopathy within the mediastinum, pericardium, and also abnormal nodes in the gastrohepatic and periorbital region and left renal mass versus some conglomeration of nodes in this region. No CT evidence of pulmonary embolus. 2. Chest x-ray on 09/15/2018, very large left-sided pleural fluid collection with minimal shift at the midline to the right and compressive changes at the underlying left lung, no old studies to compare. 3. Chest x-ray on 09/16/2018, postoperative changes with 2 left chest tubes, now in place, significant reduction in the left pleural effusion. Left lung has incompletely re-expanded pleural based mass like area in the left upper lobe and a mass in the right upper lobe and also again demonstrated interstitial changes, which are suggestive of lymphangitic spread of tumor are also unchanged. Endotracheal tube is satisfactorily positioned. Left subclavian line catheter tip overlying the proximal superior vena cava. 4. Chest x-ray on 09/17/2018, stable postoperative appearance of the chest. 5. Chest x-ray on 09/18/2018, stable left-sided thoracostomy tube, stable left lateral and basilar pneumothorax, chronic lung changes are similar appearing, patchy airspace opacities in both upper lobes are stable. 6. 09/19/2018 chest x-ray, impression; interval extubation, but otherwise stable exam. 7. On 09/20/2018 x-ray, postoperative changes. He has subcutaneous emphysema within the chest wall on the left side, stable left-sided pneumothorax primarily in the left base costophrenic angle. 8. On 09/21/2018 chest x-ray, wide worsening of the subcutaneous emphysema extending into the neck base, stable left-sided pneumothorax, stable thoracostomy tubes and left subclavian central venous catheter. 9. On 09/22/2018 chest x-ray, left-sided chest tubes remained in place. Small left-sided pneumothorax we can see. Left subclavian central venous catheter remains in place. There is mild pulmonary vascular congestion, subcutaneous emphysema in the left lateral chest extending into the neck thus we can note. 10. On 09/23/2018 chest x-ray, somewhat appearing like left hydropneumothorax with indwelling thoracostomy tubes at those site, ports inside the thoracic cavity, new layering right pleural effusion with volume loss right lateral costophrenic sulcus may reflect atelectatic changes. 11. On 09/24/2018 chest x-ray, stable exam. 12. On 09/25/2018 chest x-ray, cardiac silhouette was magnified by projection, pulmonary vasculature remains engorged with bibasilar atelectasis, similar appearance to the prior study. Left thoracostomy tubes remained in place, unchanged in position, and more residual left pneumothorax stable, left chest wall gas and left supraclavicular blebs are again demonstrated stable postoperative appearance of the chest. 13. On 09/26/2018 chest x-ray, stable exam from prior. 14. On 09/27/2018 chest x-ray, stable exam. 15. On 09/28/2018 chest x-ray, stable exam. 16. On 09/29/2018, two left-sided thoracostomy tubes remained in place. There is stable pleural thickening along the left lateral chest with residual pneumothorax again seen along the lateral mid and lower chest and at the left lateral costophrenic angle, subcutaneous emphysema, pleural thickening in the left chest. 17. On 09/30/2018 chest x-ray, stable post thoracotomy with small left costophrenic angle pneumothorax. 18. On 09/24/2018 abdominal ultrasound, gallbladder sludge without cholecystitis, moderate layering of the right pleural effusion. Visualized portions of the aorta and pancreas unremarkable. Hepatic echotexture appears normal. No mass. Portal vein patent. Antegrade flow diffuse gallbladder sludge, sonographic Ni's sign negative. Common bile duct measures 3 mm and normal. Right kidney measures 10.1 x 4.6 x 5.5 cm without mass, hydronephrosis, or abnormal calcifications. 19. On 09/16/2018, decortication with excision in the left supraclavicular mass performed, left subclavian central line placed, left thoracoscopy/thoracotomy with total pulmonary decortication completed. Specimens obtained, left supraclavicular mass, pleural fluid, and decortication specimen sent for culture and cytology. Blood loss less than 100 mL. The findings included 3 cm. 20. hard supraclavicular mass and 2500 mL of turbid foul-smelling fluid with a totally encased left upper and lower lobe. The parietal and visceral pleura were decorticated as much as the surgeon felt safe. PRIMARY DIAGNOSIS: Disseminated tuberculosis. SECONDARY DIAGNOSES: 1. Acute hypoxic respiratory failure with hypoxia and hypercapnia (now resolved). 2. Transaminitis. 3. Hyperbilirubinemia. 4. Hyponatremia (now resolved). 5. Hepatitis C, untreated. 6. Hypertension. 7. Hyperlipidemia, concerned for neoplasm, right chest. DISCHARGE MEDICATIONS: 1. Acetaminophen 650 mg p.o. q.4 hours p.r.n. headache and fever. 2. Lovenox 40 mg subcutaneous for prophylaxis daily. 3. Ethambutol 800 mg p.o. b.i.d. 4. Hydralazine 10 mg IV push q.6 hours p.r.n. 5. DuoNebs 3 mL neb q.6 hours p.r.n. 6. DuoNebs 3 mL neb q.6 hours scheduled. 7. Isoniazid 300 mg p.o. daily. 8. Levaquin 750 mg p.o. daily. 9. Zofran 4 mg p.o. q.6 hours p.r.n. 10. Zofran 4 mg IV push q.6 hours p.r.n. nausea. 11. Potassium chloride 40 mEq p.o. q.a.m. with meals. 12. Pravastatin 20 mg p.o. at bedtime. 13. Pyridoxine 50 mg p.o. daily. 14. Rifampin 300 mg p.o. b.i.d. 15. Aspirin 81 mg p.o. daily. 16. Lisinopril 20 mg p.o. daily. HISTORY OF PRESENT ILLNESS/HOSPITAL COURSE: Mr. Babb is a 63-year-old gentleman with past medical history of hepatitis C untreated, hyperlipidemia, hypertension, and incarceration, who presents with 1-month history of shortness of breath with associated symptoms included cough productive of yellow sputum and night sweats. Shortness of breath was worsen with exertion. He initially denied chest pain, fevers, or chills. He has a past medical history of hypertension, hyperlipidemia, and hepatitis C. He denied any past surgical history. Family history of hypertension in his mother. social history, 20-pack year smoking history. Drinks 1 bottle of alcohol a month, starting at age 18. Denies drug use. He initially was febrile to 102, tachycardic and hypoxic. Heart rate initially was in the 120s, respiratory rate was 18, blood pressure was 134/74. The patient's initial exam showed no respiratory distress. He had labs drawn which showed hyponatremia, sodium of 132, hypochloremia of 97, bicarb of 20, and BUN of 33. He had anemia with hemoglobin and hematocrit of 9.5 and 31.7. White blood cell count was 5.7, platelets were 211. He had a chest x-ray that showed left-sided pleural effusion. He had a CTA which was negative for pulmonary embolism, but showed a large left loculated effusion on the left side as well as a right spiculated mass and evidence of supraclavicular mass. He was admitted for acute respiratory failure with hypoxia and hypercapnia, secondary to the postobstructive pneumonia. He was actually started on vancomycin and Levaquin. Urine strep and legionella were negative. Blood cultures have been negative. Pulmonology was consulted for the CT concerning for malignancy and effusion, acid-fast bacilli was sent. He on 09/16 underwent decortication of which the findings we can see above and showed 2500 mL of foul-smelling purulent fluid was removed. Chest tube was placed. Levaquin and vancomycin were continued. He was relatively stable after the decortication that was found on 09/23/2018 to have acid-fast bacilli in the smear, which was on 09/23/2018 3+ and the culture resulted on 09/30/2018 for mycobacterium tuberculosis. On the , he was started on RIPE therapy. Our infectious disease specialist was consulted. RIPE therapy was initiated on the 09/18 after the acid-fast bacilli testing positive for tuberculosis. It then had to be discontinued. On the 09/25, RIPE therapy was held as the patient's liver enzymes markedly spiked five times abnormal than normal. The patient has received Levaquin from the first day of presentation since 09/15. On the 08/28, infectious disease specialist recommended restarting rifampin, ethambutol, Levaquin, and pyridoxine, but holding isoniazid and this is the current regimen that the patient is on today. He currently filled the chest tube with drainage of anywhere from 300 to 500 mL of output daily. Chest tube apparently has a leak. 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 After starting RIPE therapy, he had transaminitis, that has now resolved. He has a history of hepatitis C that has been untreated. He also have hypertension, on lisinopril and hyperlipidemia, on pravastatin. There are also some concern for malignant etiology of the spiculated mass on the right side of the lung. Further workup has not been completed at this point of time. He also initially presented with hypoxic and hypercapnic, which resolved after decortication. The patient has not been requiring oxygen for several days and vitals were stable today. He has been afebrile for several days during this hospital admission. DISPOSITION: Stable. DISCHARGE INSTRUCTIONS: 1. Location: Transferred to [facility] in [place]. 2. Diet: Heart healthy. 3. Activity: Up in chair 3 times a day. 4. Followup: Will be transferring care to [facility] in [place]. Job ID: [id number]
[2018-10-01] MEDS ORDERED: Isoniazid 100 MG TAB PO SCH (09:00)
== END 2018-09-30 21:40 | disposition short-term general hospital (02) | DRG 853 ==
LOC: ERS 11:53 → EEVIPCON 11:53 → 2SE 18:00 → CCU 09-16 12:25 → SURG B 09-22 21:40
PROVIDERS: ADMIT Family Medicine; ATTEND Family Medicine
PROC: 02HV33Z Insertion of Infusion Device into Superior Vena Cava, Percutaneous Approach (ICD-10-PCS; principal; 2018-09-16)
PROC: 0BJQ4ZZ Inspection of Pleura, Percutaneous Endoscopic Approach (ICD-10-PCS; 2018-09-16)
PROC: 0BNL0ZZ Release Left Lung, Open Approach (ICD-10-PCS; 2018-09-16)
PROC: 07B20ZX Excision of Left Neck Lymphatic, Open Approach, Diagnostic (ICD-10-PCS; 2018-09-16)
DX: A19.1 Acute miliary tuberculosis of multiple sites (principal); J96.01 Acute respiratory failure with hypoxia; J96.02 Acute respiratory failure with hypercapnia; J18.9 Pneumonia, unspecified organism; J86.9 Pyothorax without fistula; E87.1 Hypo-osmolality and hyponatremia; R64 Cachexia; I10 Essential (primary) hypertension; B18.2 Chronic viral hepatitis C; E80.6 Other disorders of bilirubin metabolism; E78.5 Hyperlipidemia, unspecified; Z53.32 Thoracoscopic surgical procedure converted to open procedure; Z68.26 Body mass index [BMI] 26.0-26.9, adult; F17.210 Nicotine dependence, cigarettes, uncomplicated; Z79.82 Long term (current) use of aspirin
CPT/HCPCS: 36415; 36430; 71045; 71275; 76705; 80053; 80061; 80074; 82465; 82533; 82550; 82805; 83605; 83880; 83930; 83935; 84165; 84300; 84443; 84478; 84484; 85025; 85060; 85379; 86480; 86593; 86612; 86635; 86698; 86704; 86705; 86706; 86707; 86780; 86803; 86850; 86900; 86901; 87040; 87070; 87116; 87205; 87206; 87340; 87350; 87385; 87389; 87522; 87536; 87899; 88112; 88305; 88312; 93005; 93010; 94002; 94003; 94640; J0670; J1642; J1650; J1940; J1956; J2001; J2405; J2704; J2997; J3010; J3370; J7050; J7620; P9016; Q9966